=== PATIENT | female | born 1960 | race Caucasian/White ===

== ENCOUNTER → 2016-02-29 | Outpatient (CLI) | payer BC ==
[~2016-02-29] VITALS: Ht 160 cm; Wt 72.6 kg
[~2016-02-29] MED LIST: ACCUNEB SO1.25 MG/1 INH; AMLODIPINE BESY10 MG PO; BACLOFEN 10MG T10 MG PO; BUSPAR; BUTRANS1 EAC1 TD; BYSTOLIC2.5 MG PO; DIAZEPAM 2MG TAB2 MG; DOXYCYCLINE 10100 MG PO; EFFEXOR XR150 MG PO; EFFEXOR25 MG; FENOFIBRATE PO; GLUCOTROL5 MG PO; HYDROCODON-ACE1 EAC7 PO; IMITREX 25 MG T25 MG PO; INDERAL LA60 MG PO; MEDROLDOSEPACK PO; METFORMIN HCL500 MG PO; MOBIC15 MG PO; NEURONTIN600 MG PO; NORTRIPTYLINE H25 M3; PROMETHAZINE/C118 ML; RELPAX40 MG PO; ROBAXIN 750 MG750 M1 PO; SEROQUEL 50 MG50 MG PO; SEROQUEL400 MG PO; SIMVASTATIN20 MG PO; SPIRIVA INH; SYMBICORT160 MCG/4. INH; TIZANIDINE HCL 22 M1 PO; TIZANIDINE HCL2 M1 PO; TOPAMAX 25 MG T25 M1 PO; TRAMADOL 50 MG50 MG PO; TRICOR145 MG PO; VALIUM5 MG PO; VIBRAMYCIN100 MG PO; XANAX 0.25 MG0.25 MG PO; ZANAFLEX4 MG PO
--- NOTE | ~2016-02-29 | O ---
[facility] [place] [address] [place] [address] OPERATIVE REPORT Name: SHANTI WEBSTER [id number] Admission: 02/29/16 Attend Phys: Joseph Tong DO Discharge: Date of : 60 Report #: [id number] THIS REPORT FOR: //name// CC: Ricardo Tong DATE OF SERVICE: 02/29/2016 NAME OF THE PROCEDURE: Cervical epidural steroid injection under fluoroscopy. ASSESSMENT: Symptomatic Cervical Radiculopathy DESCRIPTION OF PROCEDURE: After written and informed consent was obtained including risk of dural puncture, spinal cord trauma, paralysis and increased pain, the patient was taken to the fluoroscopy suite and placed in the prone position, with appropriate abdominal bolstering, neck was flexed, palms under the thighs. Skin was prepped with ChloraPrep. Sterile draping was applied. Skin wheal with 1% Xylocaine was raised. A 22-gauge 3-1/2 inch epidural Tuohy needle was placed via a midline approach at the C7-T1 interspace, advanced under biplanar fluoroscopy using continuous loss of resistance. With appropriate loss of resistance at the expected depth on lateral view, the glass loss of resistance syringe was disconnected. A low volume extension tubing was connected to the needle and a 5 mL syringe. Negative aspiration for cerebrospinal fluid or blood was noted. A 1 mL of Omnipaque was injected which showed spread within the epidural space on biplanar fluoroscopy. This was followed with 80 mg of triamcinolone plus 1 mL of 1.5% preservative Xylocaine. Needle was withdrawn to the interspinous ligament, 0.5 mL of Xylocaine was used to flush the needle. The needle was then completely withdrawn. The area was cleansed. Band-Aid was applied. The patient was allowed to move off the procedure table and ambulated to the recovery room, monitored for an appropriate period of time, discharged in good and stable condition. <ELECTRONICALLY SIGNED> By: Joseph Tong DO 03/07/16 0858 [id number] [id number] Joseph Tong DO /nt
--- NOTE | ~2016-02-29 | HPC ---
[facility] [place] [address] PAIN MANAGEMENT CONSULTATION Name: SHANTI WEBSTER [facility] [id number] Admission: 02/29/16 Attend Phys: Joseph Tong DO Discharge: Date of : 60 Report #: [id number] THIS REPORT FOR: //name// CC: Ricardo Tong DATE OF SERVICE: 02/29/2016 HISTORY OF PRESENT ILLNESS: The patient is a 55-year-old female typically treated for cervical radiculopathy, chronic headaches, neuropathic pain requiring complex medication management, last seen in the pain clinic on 12/14/2015, continued on Butrans 20 mcg q. 7 days, baclofen 10 mg q.i.d. We started tizanidine 2 mg 3 times a day for spasm. Returns to pain clinic today noting medications are helpful, though she is having significant increase in radicular pain, primarily neck, right shoulder and arm, somewhat in the left. PHYSICAL EXAMINATION: Shows a 55-year-old female with BMI of 28.4 kg/m2, blood pressure is 136/77, pulse 89, respirations of 14. Positive Lhermitte with decreased right arm range of motion. IMAGING STUDIES: Prior study was quite dated 2008, MRI of the cervical spine showing facet degenerative changes. ASSESSMENT: 1. Symptomatic cervical radiculopathy, headaches, chronic pain syndrome requiring complex medication management. 2. Acute exacerbation of cervical radiculopathy. RECOMMENDATIONS: 1. Continue Butrans 20 mcg q. 7 days, baclofen 10 mg 4 times a day. We will increase tizanidine from 2 to 4 mg t.i.d. 2. Cervical epidural injection under fluoroscopy today. <ELECTRONICALLY SIGNED> By: Joseph Tong DO 03/07/16 0858 1636 [id number] Joseph Tong DO /nt
[2016-02-29 13:54] VITALS: BP 136/77
== END ==
LOC: PAIN 06:50
DX: M54.12 Radiculopathy, cervical region (principal); G89.4 Chronic pain syndrome; Z87.891 Personal history of nicotine dependence

== ENCOUNTER → 2016-05-30 | Outpatient (CLI) | payer BC ==
[~2016-05-30] VITALS: Ht 157.5 cm; Wt 73.3 kg
[~2016-05-30] MED LIST changes: +BUTALB-APAP-CA1 EACH PO; +GABAPENTIN800 M1 PO; +GLIPIZIDE 10 MG10 MG PO; +KEPPRA250 MG PO; +VALIUM2 MG PO
--- NOTE | ~2016-05-30 | HPC ---
[facility] [place] [address] [place] [address] PAIN MANAGEMENT CONSULTATION Name: SHANTI WEBSTER Room #: REG [facility]#: [id number] Admission: 05/30/16 Attend Phys: Joseph Tong DO Discharge: Date of : 60 Report #: [id number] THIS REPORT FOR: //name// CC: Ricardo Tong The patient is a 56-year-old female being treated for cervical radiculopathy, headaches, and neuropathic pain, requiring complex medication management. She had been stable on Butrans 20 mcg q. 7 days, baclofen typically hs and tizanidine for spasm. We did a cervical epidural injection at last visit with unfortunately really no dramatic improvement of baseline pain. she had about 3 days relief. With ongoing radicular pain, no significant relief following the injection, ordered an MRI which is attending. Depending on the results, we may refer for surgical consultation. Today, she notes the pain is primarily right shoulder and arm, chronic aching, sharp and stabbing, rates to 9 on a 0-10 visual analog scale, exacerbated with movement and weather changes. PHYSICAL EXAMINATION: GENERAL: Shows a 56-year-old female, 29.5 kilograms per meter squared BMI using supplemental oxygen. Blood pressure 116/67, pulse 93 and respirations 14. Cervical range of motion is limited. Positive Lhermitte's. Decreased range of motion of right shoulder and decreased strength and right arm. ASSESSMENT: Symptomatic cervical radiculopathy, headaches and neuropathic pain, requiring complex medication management. RECOMMENDATION: 1. Continue Butrans 20 mcg q. 7 days, tizanidine 2 mg one to two 3 times a day for spasm and baclofen 10 mg at bedtime. Follow up as needed for medication management. We will review MRI when available. <ELECTRONICALLY SIGNED> By: Joseph Tong DO 06/02/16 1240 [id number] 0409 Joseph Tong DO /nt
[2016-05-30 14:17] VITALS: BP 116/67
== END ==
LOC: PAIN 06:55
DX: M54.12 Radiculopathy, cervical region (principal); G44.89 Other headache syndrome; G62.9 Polyneuropathy, unspecified

== ENCOUNTER → 2016-07-04 | Outpatient (CLI) | payer BC ==
[~2016-07-04] VITALS: Ht 157.5 cm; Wt 72.8 kg
[~2016-07-04] MED LIST changes: +BUSPAR30 MG PO; +VOLTAREN GEL 1100 G2 TOP
--- NOTE | ~2016-07-04 | HPC ---
[facility] [place] [address] [place] [address] PAIN MANAGEMENT CONSULTATION Name: SHANTI WEBSTER Room #: REG [facility] Mamie#: [id number] Admission: 07/04/16 Attend Phys: Joseph Tong DO Discharge: Date of : 60 Report #: [id number] THIS REPORT FOR: //name// CC: Ricardo Tong The patient is a 56-year-old female, typically treated for symptomatic cervical radiculopathy, chronic headaches, neuropathic pain requiring complex medication management. She was last seen in the pain clinic on 05/30/2016. I continued the patient on her baseline Butrans 20 mcg q.7 days, tizanidine 2 mg up to t.i.d. for spasm, and baclofen at bedtime. We ordered a cervical MRI, which was indeed accomplished on 05/31/2016. I reviewed this with the patient today. There is a small right posterolateral C6-C7 disk protrusion, narrowing the right C7 neural foramen. The patient returns to pain clinic today. We spent a prolonged visit today. She was seen for approximately 25 minutes from [id number], greater than 50% of this 25 plus minute visit was spent counseling the patient. She presents to pain clinic today complaining of great deal of pain, she rates her pain a 9 on a 0-10 visual analog scale. She states she has pain "all over." She states she has pain in the neck, radiating up to the posterior occiput and into right arm & into " all of her fingers," all the way down spine to the beltline. She states pain is exacerbated with weather, any movement, or lifting her arms. She is asking for more "pain medicine." PHYSICAL EXAMINATION: Shows a 56-year-old female, BMI is 29.4 kg/m2. Blood pressure is 157/79, pulse is 90, and respirations are 14. Cranial nerves 2-12 are generally intact. Cervical range of motion is modestly diminished. She has extreme hyperpathia. She complains of pain to all resistance test for the deltoid, biceps, triceps and in fact physically recoils in subjective pain with active range of motion of the right shoulder. Deep tendon reflexes are generally preserved for the biceps, triceps, and brachioradialis. She has pain with passive rotation of the shoulder, which is perplexing. She exhibits some components of cervical radiculopathy, some components of DJD, some components of simply myofascial pain disorder. Long discussion with the patient today about therapeutic options. We elected to get an x-ray of the right shoulder to rule out any acute osseous pathology. She states she feels she has pain "into the bone." If this is unremarkable, we may consider a cervical epidural injection. If no relief with this, we would want to get an EMG of the right upper extremity. Today, we have elected to renew current medication including Butrans 20 mcg q.[address] [address] PAIN MANAGEMENT CONSULTATION Name: SHANTI WEBSTER Room #: REG [facility] Hatch#: [id number] Admission: 07/04/16 Attend Phys: Joseph Tong DO Discharge: Date of : 60 Report #: [id number] days, butalbital as needed for headaches up to t.i.d., tizanidine 4 mg t.i.d. for spasm and I have taken the liberty of initiating of Voltaren gel topically for the right shoulder. She has had GI intolerance of most all anti-inflammatories including Celebrex. Discharged in good and stable condition after a prolonged visit, follow up in 1-2 weeks if symptoms continue despite the Voltaren gel, seemingly shoulder is unremarkable on radiology, we will consider cervical epidural injection. <ELECTRONICALLY SIGNED> By: Joseph Tong DO 07/06/16 0758 1515 [id number] Joseph Tong DO /nt
[2016-07-04 14:01] VITALS: BP 157/79
== END ==
LOC: PAIN 06:54
DX: M54.12 Radiculopathy, cervical region (principal); G89.29 Other chronic pain; Z87.891 Personal history of nicotine dependence

== ENCOUNTER → 2016-08-08 | Outpatient (CLI) | payer BC ==
[~2016-08-08] VITALS: Ht 157.5 cm; Wt 72.1 kg
[~2016-08-08] MED LIST changes: +FENTANYL PA12 MCG/HR TD
--- NOTE | ~2016-08-08 | HPC ---
[facility] [address] [place] [address] PAIN MANAGEMENT CONSULTATION Name: SHANTI WEBSTER [facility]: [facility] [id number] Admission: 08/08/16 Attend Phys: Joseph Tong DO Discharge: Date of : 60 Report #: [id number] THIS REPORT FOR: //name// CC: Ricardo Tong The patient is a 56-year-old female being treated for symptomatic cervical radiculopathy, headaches, neuropathic pain requiring complex medication management. She has been remarkably stable on Butrans patch at 20 mcg for a number of years. Last seen in the pain clinic 07/04/2016. She has significant COPD and is oxygen dependent. For some reason, her insurance company is set to cancel her Butrans 20 mcg patch and is forwarding us information stating that the indicated recommendation from their standpoint is to rotate to Duragesic patch. I am a little concerned rotating to a much more robust narcotic in this patient that is oxygen dependent. She has been stable on her current medication for quite some time. We discussed concerns for respiratory depression and cognitive impairment switching her opiate analgesic. She is on multiple central acting agents for significant psychiatric disorder, she is currently taking gabapentin, diazepam, Keppra, Seroquel, venlafaxine, along with other medications for dyslipidemia, hypertension and significant pulmonary dysfunction. After a long discussion with the patient, we have elected to trial a rotation to Duragesic 12 mcg q. 72 hours. We will discontinue any breakthrough medications. She tells me she is concerned that the Fioricet that we are prescribing for headaches is causing her GI disturbance. I suggested she discontinue it as well. Continue tizanidine as needed for spasm. We will see the patient back in 4 weeks to evaluate efficacy of medication changes. The patient was discharged in good and stable condition. Follow up in 4 weeks for reevaluation. Urine drug screen was accomplished today. No aberrant behavior suggestive for drug diversion, simply complying with our opiate consent to treat contract. This urine should be positive for buprenorphine as her sole opiate. By: [id number] Joseph Tong DO /nt
[2016-08-08 14:39] VITALS: BP 151/83
== END | disposition home or self-care (01) ==
LOC: PAIN 06:56
DX: M54.12 Radiculopathy, cervical region (principal); J44.9 Chronic obstructive pulmonary disease, unspecified; I10 Essential (primary) hypertension; E78.5 Hyperlipidemia, unspecified; R51 Headache; F99 Mental disorder, not otherwise specified; Z87.891 Personal history of nicotine dependence; Z88.0 Allergy status to penicillin; Z88.8 Allergy status to other drugs, medicaments and biological substances; Z79.899 Other long term (current) drug therapy

== ENCOUNTER → 2016-09-05 | Outpatient (CLI) | payer BC ==
[~2016-09-05] VITALS: Ht 157.5 cm; Wt 72.6 kg
[2016-09-05 14:33] VITALS: BP 110/67
== END | disposition home or self-care (01) ==
LOC: PAIN 06:57
DX: M54.12 Radiculopathy, cervical region (principal); M47.812 Spondylosis without myelopathy or radiculopathy, cervical region; F41.8 Other specified anxiety disorders; Z87.891 Personal history of nicotine dependence

== ENCOUNTER → 2016-10-21 | Outpatient (CLI) | payer BC ==
[~2016-10-21] VITALS: Ht 157.5 cm; Wt 71.8 kg
--- NOTE | ~2016-10-21 | HPC ---
[facility] [place] [address] [place] [address] PAIN MANAGEMENT CONSULTATION Name: SHANTI WEBSTER Room #: REG [facility] Mamie#: [id number] Admission: 10/21/16 Attend Phys: Joseph Tong, DO Discharge: Date of : 60 Report #: [id number] THIS REPORT FOR: //name// CC: Ricardo Tong The patient is a very pleasant 56-year-old female well known to the pain clinic, being treated for high-risk complex medication management, cervical radiculopathy, chronic headaches, cervical spondylosis, chronic anxiety and depression, on multiple central acting agents from her psychiatrist. Last visit on 09/05/2016. We continued the patient on Duragesic 12 mcg (we had rotated to this because her insurance company stopped paying for Butrans, which had been efficacious), trial of Fioricet for headaches. Continue Voltaren gel topically. Last urine drug screen on 08/08/2016 is positive for prescribed medications at that time (buprenorphine). The patient returns to the pain clinic today, she is asking for an increase in the narcotic analgesics, though I am loath to move forward with escalating dose of this rather robust narcotic. She subjectively rates pain an 8 on a VAS. Pain is in the neck, right shoulder and arm with ongoing headaches. She does not think that the Fioricet was helpful for headaches. She is using Voltaren gel topically. PHYSICAL EXAMINATION: Unchanged, a 56-year-old female, BMI is 28.9 kg/m2. Affect is somewhat flat, compatible with her medications. Blood pressure is modestly elevated at 154/90, pulse 109, respirations 18. Cervical range of motion is a little bit limited, has some paresthesia in the right arm, though no discrete trigger points are noted. Hand grasp is symmetric. Heart is regular and rhythmical. Lungs are clear. Gait is generally tandem. Medication list was reconciled including multiple central acting agents including BuSpar, gabapentin, diazepam, Keppra, Seroquel, venlafaxine. She is on multiple agents for her COPD including Symbicort, Spiriva, albuterol. She does require supplemental oxygen. We reviewed the fact that opiate medications are being used to provide analgesia adequate to support activities of daily living, not attempting to achieve a specific pain score on the 0-10 Visual Analog Scale. The current opiate medications are providing sufficient analgesia to allow the patient to participate in activities of daily living. The patient is not exhibiting any aberrant behavior suggestive of drug diversion. The patient is not having any adverse reactions to medications. The patient is not suffering from daytime somnolence or mental acuity changes. The patient is managing opiate-induced constipation with appropriate hsip-bjo-vzbewgc agents and dietary considerations. The patient was counseled on concern for caution with operating a motor vehicle while using opiate medications. [address] [address] PAIN MANAGEMENT CONSULTATION Name: SHANTI WEBSTER [facility]: [facility] [id number] Admission: 10/21/16 Attend Phys: Joseph Tong DO Discharge: Date of : 60 Report #: [id number] A physical exam was performed and the patient's functional status was evaluated. All patients with back pain were advised against the bed rest greater than 4 days and were advised to return to normal activities. Pain score assessment was noted and the treatment plan was reviewed with the patient. All current medications, both prescribed and OTC were reviewed and reconciled on the electronic medical record. Tobacco screening was accomplished and smoking cessation was advised when indicated. BMI was noted and diet/exercise modification was recommended for all patients following outside normal parameters. I reviewed with the patient today their responsibilities to safeguard prescription medications, reviewed their responsibility to utilize medications only as prescribed by the physician. They are to seek and receive pain medications only from 1 physician group ( [facility]). They are to use 1 pharmacy and keep the clinic informed if they change pharmacies. Their responsibilities include making followup visits in a timely fashion and to avoid abrupt discontinuation of medication usage. Their responsibilities further include bringing their medications (bottles from the pharmacy with residual pills) to the visit for possible confirmation of pill counts and the patient understands it is their responsibility to submit to random drug screens to ensure both that the medications prescribed are present, and that no other controlled substances are present. All prescriptions provided today were generated electronically. Prolonged visit with the patient today from 14:48 to 15:20, greater than 50% of this 25+ minute visit was spent counseling the patient. Again, with COPD and cervical spondylosis, headaches, depression and high-risk complex medication, I am loath to increase her Duragesic patch. Again, it is specifically indicated for opiate-tolerant patients and she has rotated from [facility] to this simply due to insurance. We have elected to discontinue Fioricet. We will trial tramadol for breakthrough pain 50 mg t.i.d., continue Zanaflex 4 mg up to 4 times a day. I have taken the liberty of writing for 2 months of current medications. Discharged in good and stable condition after prolonged visit. Follow up at that time, earlier if needed. <ELECTRONICALLY SIGNED> By: Joseph Tong DO 10/27/16 0847 1251 2226 Joseph Tong DO /nt
[2016-10-21 14:43] VITALS: BP 154/90
== END | disposition home or self-care (01) ==
LOC: PAIN 14:10
DX: Z76.0 Encounter for issue of repeat prescription (principal); M54.12 Radiculopathy, cervical region; M47.892 Other spondylosis, cervical region; R51 Headache; G89.29 Other chronic pain; F41.8 Other specified anxiety disorders; F32.89 Other specified depressive episodes; Z79.891 Long term (current) use of opiate analgesic; J44.9 Chronic obstructive pulmonary disease, unspecified; Z87.891 Personal history of nicotine dependence; Z88.0 Allergy status to penicillin; Z79.82 Long term (current) use of aspirin; Z88.8 Allergy status to other drugs, medicaments and biological substances; Z79.899 Other long term (current) drug therapy

== ENCOUNTER → 2017-03-02 | Outpatient (CLI) | payer BC ==
[~2017-03-02] VITALS: Ht 157.5 cm; Wt 75.3 kg
[~2017-03-02] MED LIST changes: +ALLEGRA ALLERG180 MG PO; +CYMBALTA30 MG PO; +DURAGESIC1 EACH TRANSDERM; +Fentanyl Patch 12 Mc TRANSDERM
--- NOTE | ~2017-03-02 | HPC ---
[facility] [place] [place] [address] [place] [address] PAIN MANAGEMENT CONSULTATION Name: SHANTI WEBSTER Room #: REG [facility] [id number] Admission: 03/02/17 Attend Phys: Joseph Tong DO Discharge: Date of : 60 Report #: [id number] THIS REPORT FOR: //name// CC: Ricardo Tong HISTORY OF PRESENT ILLNESS: The patient is a 56-year-old female, long known to pain clinic for symptomatic cervical radiculopathy, cervical spondylosis, chronic anxiety requiring high risk complex medication management. She was last seen in the pain clinic on 12/29/2016, continued on Duragesic 12 mcg q. 72 hours, tramadol 50 mg up to 3 times a day, tizanidine 4 mg t.i.d. Last random drug screen on 08/08/2016 was positive for prescribed medications. She returns to pain clinic today. She notes that while medications are helpful, she still has ongoing pain in neck, right shoulder and arm. In fact notes that the radicular symptoms seem to be getting worse with the cold weather. She rates her subjective pain score 8 on a VAS. Pain primarily right shoulder, arm with ongoing chronic headaches. PHYSICAL EXAMINATION: Shows a 56-year-old female, BMI is 30.4 kilograms per meter squared. Blood pressure is 136/75, pulse 105, respirations 18. Cervical range of motion is modestly limited. Upper extremity strength has some subjective give away to right deltoid strength secondary to pain. Biceps and triceps strength is symmetric. Hand grasp is good. Deep tendon reflexes are preserved. Some diffuse tenderness in the cervical spine, splenius capitis, trapezius and thoracic paravertebral muscles. We reviewed the fact that opiate medications are being used to provide analgesia adequate to support activities of daily living, not attempting to achieve a specific pain score on the 0-10 Visual Analog Scale. The current opiate medications are providing sufficient analgesia to allow the patient to participate in activities of daily living. The patient is not exhibiting any aberrant behavior suggestive of drug diversion. The patient is not having any adverse reactions to medications. The patient is not suffering from daytime somnolence or mental acuity changes. The patient is managing opiate-induced constipation with appropriate xjts-ixe-cgryogw agents and dietary considerations. The patient was counseled on concern for caution with operating a motor vehicle while using opiate medications. A physical exam was performed and the patient's functional status was evaluated. All patients with back pain were advised against the bed rest greater than 4 days and were advised to return to normal activities. Pain score assessment was noted and the treatment plan was reviewed with the patient. All current medications, both prescribed and OTC were reviewed and reconciled on the electronic medical record. Tobacco screening was accomplished and smoking cessation was advised when indicated. BMI was noted and diet/exercise [address] [address] PAIN MANAGEMENT CONSULTATION Name: ELEANORSHANTI MARAVILLA Room #: REG [facility] [id number] Admission: 03/02/17 Attend Phys: Joseph Tong DO Discharge: Date of : 60 Report #: [id number] modification was recommended for all patients following outside normal parameters. I reviewed with the patient today their responsibilities to safeguard prescription medications, reviewed their responsibility to utilize medications only as prescribed by the physician. They are to seek and receive pain medications only from 1 physician group ( [facility]). They are to use 1 pharmacy and keep the clinic informed if they change pharmacies. Their responsibilities include making followup visits in a timely fashion and to avoid abrupt discontinuation of medication usage. Their responsibilities further include bringing their medications (bottles from the pharmacy with residual pills) to the visit for possible confirmation of pill counts and the patient understands it is their responsibility to submit to random drug screens to ensure both that the medications prescribed are present, and that no other controlled substances are present. All prescriptions provided today were generated electronically. ASSESSMENT: 1. Symptomatic cervical spondylosis. 2. Cervical radiculopathy by history. 3. Chronic anxiety. 4. Headaches. 5. Bipolar disorder. 6. Requiring high risk complex medication management. RECOMMENDATION: Continue Duragesic 12 mcg q. 72 hours. Cautioned about opiate analgesic use and COPD requiring supplemental oxygen. Continue tramadol as needed for breakthrough pain 50 mg t.i.d. The patient queried about increasing this dose; however, she is on other serotonin reuptake inhibiting agents including venlafaxine 150 mg. We elected to continue simply t.i.d. tramadol. Continue Voltaren gel topically and tizanidine 4 mg 3-4 times a day as needed for spasm. I have taken the liberty of writing for 2 months of current medication. Follow up at that time, earlier if needed. <ELECTRONICALLY SIGNED> By: Joseph Tong DO 03/03/17 0954 1439 2128 Joseph Tong DO /nt
[2017-03-02 13:42] VITALS: BP 136/75
== END ==
LOC: PAIN 06:43
DX: M54.12 Radiculopathy, cervical region (principal); M47.892 Other spondylosis, cervical region; F41.9 Anxiety disorder, unspecified; R51 Headache; F31.89 Other bipolar disorder; Z79.899 Other long term (current) drug therapy

== ENCOUNTER → 2017-04-28 | Outpatient (CLI) | payer BC ==
[~2017-04-28] VITALS: Ht 157.5 cm; Wt 75.7 kg
--- NOTE | ~2017-04-28 | HPC ---
[facility] [place] [address] PAIN MANAGEMENT CONSULTATION Name: SHANTI WEBSTER Room #: REG [facility] Jatin.#: [id number] Admission: 04/28/17 Attend Phys: Joseph Tong, DO Discharge: Date of : 60 Report #: [id number] THIS REPORT FOR: //name// CC: Ricardo Tong The patient is a 57-year-old female, long known to the pain clinic, being treated for cervical radiculopathy, cervical spondylosis, chronic headaches, requiring complex medication management. She was last seen in the pain clinic 03/02/2017. Continued on baseline medication including Duragesic 12 mcg q.72 hours, tramadol 50 mg 1 tablet 3 times a day, tizanidine 4 mg t.i.d. for spasm. I have phoned in a prescription for Fioricet as a trial for ongoing headaches, this has been efficacious. Last random drug screen 08/08/2016, was positive for prescribed medications. The patient returns to pain clinic today noting medications are generally providing sufficient analgesia to participate in activities of daily living. She notes subjective pain score 7 on a VAS. BMI is 30.5 kg/m2, blood pressure 163/78, pulse 94, respirations are 14, oxygen saturation 96% on 2 liters nasal cannula. She has not fallen in the last 3 months, though she does have occasional "dizzy spells." History of hypertension, all medications were reconciled. She has had an opiate consent to treat contract for several years. She is at moderate risk for diversion. Some primary pain, headaches, neck and shoulder. Cervical range of motion is modestly limited. We reviewed the fact that opiate medications are being used to provide analgesia adequate to support activities of daily living, not attempting to achieve a specific pain score on the 0-10 Visual Analog Scale. The current opiate medications are providing sufficient analgesia to allow the patient to participate in activities of daily living. The patient is not exhibiting any aberrant behavior suggestive of drug diversion. The patient is not having any adverse reactions to medications. The patient is not suffering from daytime somnolence or mental acuity changes. The patient is managing opiate-induced constipation with appropriate qdso-uur-tfwzzyq agents and dietary considerations. The patient was counseled on concern for caution with operating a motor vehicle while using opiate medications. A physical exam was performed and the patient's functional status was evaluated. All patients with back pain were advised against the bed rest greater than 4 days and were advised to return to normal activities. Pain score assessment was noted and the treatment plan was reviewed with the patient. All current medications, both prescribed and OTC were reviewed and reconciled on the electronic medical record. Tobacco screening was accomplished and smoking cessation was advised when indicated. BMI was noted and diet/exercise modification was recommended for all patients following outside normal parameters. [address] [address] PAIN MANAGEMENT CONSULTATION Name: SHANTI WEBSTER [facility] [id number] Admission: 04/28/17 Attend Phys: Joseph Tong DO Discharge: Date of : 60 Report #: [id number] I reviewed with the patient today their responsibilities to safeguard prescription medications, reviewed their responsibility to utilize medications only as prescribed by the physician. They are to seek and receive pain medications only from 1 physician group ( [facility]). They are to use 1 pharmacy and keep the clinic informed if they change pharmacies. Their responsibilities include making followup visits in a timely fashion and to avoid abrupt discontinuation of medication usage. Their responsibilities further include bringing their medications (bottles from the pharmacy with residual pills) to the visit for possible confirmation of pill counts and the patient understands it is their responsibility to submit to random drug screens to ensure both that the medications prescribed are present, and that no other controlled substances are present. All prescriptions provided today were generated electronically. ASSESSMENT: Chronic headaches, cervical radiculopathy, cervical spondylosis, chronic complex medication management. The patient is doing well with current opiate consent to treat contract medications. We will renew Duragesic, tramadol, tizanidine and Fioricet. Fioricet to be used on a nondaily basis, one tablet onset of headache, may repeat in 4 hours, max 2 tablets in 24 hours, limit 30 tablets for 30 days with 1 refill. Follow up in 2 months for reevaluation. We want to get a buccal swab at that time, it will be about 12 months since her last random drug screen. The patient has shown no aberrant behavior suggestive of drug diversion. <ELECTRONICALLY SIGNED> By: Joseph Tong DO 05/04/17 0938 [id number] Joseph Tong DO /nt
[2017-04-28 13:41] VITALS: BP 163/78
== END ==
LOC: PAIN 07:10
DX: R51 Headache (principal); M54.12 Radiculopathy, cervical region; M47.892 Other spondylosis, cervical region

== ENCOUNTER → 2017-08-25 | Outpatient (CLI) | payer BC ==
[~2017-08-25] VITALS: Ht 157.5 cm; Wt 76.7 kg
--- NOTE | ~2017-08-25 | HPC ---
[facility] [place] [address] PAIN MANAGEMENT CONSULTATION Name: SHANTI WEBSTER Room #: REG [facility].#: [id number] Admission: 08/25/17 Attend Phys: Joseph Tong DO Discharge: Date of : 60 Report #: [id number] THIS REPORT FOR: //name// CC: Ricardo Tong DATE OF SERVICE: 08/25/2017 The patient is a 57-year-old female, long known to the Pain Clinic, typically treated for chronic pain syndrome requiring complex medication management, axial back pain. She had been stable for quite some time on Butrans patch. Unfortunately, her insurance company stopped paying for this. We rotated to fentanyl, I believe, in July of last year. She has done reasonably well with Duragesic at 12 mcg q. 72 hours. She uses tramadol for breakthrough pain, Fioricet for chronic headaches, and tizanidine for muscle spasm. She has done reasonably well with current medications. Pain impact score is greater than 35/70. Subjective pain score is 7-8 on a VAS. She notes weather exacerbates pain. With the heat, she has been unable to do a lot of walking. She states she felt a little better when she is able to walk on a more regular basis. PHYSICAL EXAMINATION: Reveals a 57-year-old female, BMI is 30.5 kg/m2. Vital signs stable as noted in the EMR. She uses supplemental oxygen at 3 liters per minute. She has not fallen in the last 3 months. Notes primary pain is in the neck and shoulders today with some chronic axial back pain. Cervical range of motion is modestly limited. Upper extremity strength is generally preserved. Tender in the splenius capitis and trapezius. Lower extremity strength is diminished, but symmetric. We reviewed the fact that opiate medications are being used to provide analgesia adequate to support activities of daily living, not attempting to achieve a specific pain score on the 0-10 Visual Analog Scale. The current opiate medications are providing sufficient analgesia to allow the patient to participate in activities of daily living. The patient is not exhibiting any aberrant behavior suggestive of drug diversion. The patient is not having any adverse reactions to medications. The patient is not suffering from daytime somnolence or mental acuity changes. The patient is managing opiate-induced constipation with appropriate varf-tol-aszthgd agents and dietary considerations. The patient was counseled on concern for caution with operating a motor vehicle while using opiate medications. A physical exam was performed and the patient's functional status was evaluated. All patients with back pain were advised against the bed rest greater than 4 days and were advised to return to normal activities. Pain score assessment was noted and the treatment plan was reviewed with the patient. All current [address] [address] PAIN MANAGEMENT CONSULTATION Name: SHANTI WEBSTER Room #: REG [facility] Mamie#: [id number] Admission: 08/25/17 Attend Phys: Joseph Tong DO Discharge: Date of : 60 Report #: [id number] medications, both prescribed and OTC were reviewed and reconciled on the electronic medical record. Tobacco screening was accomplished and smoking cessation was advised when indicated. BMI was noted and diet/exercise modification was recommended for all patients following outside normal parameters. I reviewed with the patient today their responsibilities to safeguard prescription medications, reviewed their responsibility to utilize medications only as prescribed by the physician. They are to seek and receive pain medications only from 1 physician group ([facility]). They are to use 1 pharmacy and keep the clinic informed if they change pharmacies. Their responsibilities include making followup visits in a timely fashion and to avoid abrupt discontinuation of medication usage. Their responsibilities further include bringing their medications (bottles from the pharmacy with residual pills) to the visit for possible confirmation of pill counts and the patient understands it is their responsibility to submit to random drug screens to ensure both that the medications prescribed are present, and that no other controlled substances are present. All prescriptions provided today were generated electronically. ASSESSMENT: Chronic axial back pain, cervical spondylosis, myofascial pain, requiring complex medication management. The patient has multiple comorbidities including chronic obstructive pulmonary disease and significant psychiatric disorder. Medication list was reconciled today. After discussion with the patient, we will like to continue Duragesic 12 mcg q. 72 hours. Continue Fioricet, limit 30 tablets for 30 days; Voltaren gel topically, which the patient feels has been quite efficacious; Tramadol for breakthrough pain 50 mg up to 3 a day; tizanidine 4 mg as needed for spasm up to 4 a day. Current psychiatric medications from other providers include venlafaxine, Seroquel, Keppra, Cymbalta 30 mg, BuSpar. The patient also takes albuterol, Spiriva inhaler and Symbicort for pulmonary concerns, amlodipine for hypertension, and glipizide for tld-ghftlsc-ymokaoqaq diabetes. Today, I have renewed prescriptions for Voltaren gel topical; Duragesic 25 mcg q. 72 hours; tizanidine 4 mg, limit 120 tablets, 1 refill; tramadol 50 mg 100 tablets, 1 refill. Discharged in good and stable condition. Follow up with one of my [facility] as able. <ELECTRONICALLY SIGNED> By: Joseph Tong DO 08/28/17 0659 [id number] Joseph Tong DO /nawaf
[2017-08-25 12:43] VITALS: BP 155/105
== END ==
LOC: PAIN 07:00
DX: M47.812 Spondylosis without myelopathy or radiculopathy, cervical region (principal); M54.5 Low back pain; G89.4 Chronic pain syndrome; M79.1 Myalgia; Z79.899 Other long term (current) drug therapy

== ENCOUNTER → 2017-12-22 | Outpatient (CLI) | payer BC ==
[~2017-12-22] VITALS: Ht 157.5 cm; Wt 72.6 kg
--- NOTE | ~2017-12-22 | HPC ---
[facility] [place] [place] [address] PAIN MANAGEMENT CONSULTATION Name: SHANTI WEBSTER Room #: REG [facility] JatinChris#: [id number] Admission: 12/22/17 Attend Phys: Amber Pappas Discharge: Date of : 60 Report #: [id number] THIS REPORT FOR: //name// CC: Amber Michaels MD DATE OF SERVICE: 12/22/2017 CHIEF COMPLAINT: Right shoulder pain, right arm pain, neck pain, and abdominal pain. HISTORY OF PRESENT ILLNESS: The patient is a pleasant 57-year-old female who has been followed in the pain clinic for several years by Dr. Joseph Tong. She has been followed for her axial back pain as well as neck and shoulder pain. Today, she presents with abdominal pain, states that her abdomen is tender to touch. She was going in for her colonoscopy and the doctor noticed that her abdomen was large and swollen. He did not perform her colonoscopy that day, gave her 2 rounds of antibiotics and did some testing. The patient is to follow up with that doctor on Monday to find out the results. She tells me that her appetite has decreased. She has lost 6 pounds since last seen. Does not have an appetite, but does take her medicines with pudding and jello. The patient tells me today that her pain is 9/10. She just does not feel good, mostly tenderness and cramping in her abdomen. She does tell me that her neck and shoulder is worse with weather or movement. The medications used to help. The fentanyl she believes is still helping, but not the tramadol, so we discussed changes in her medications. The patient does not tell me that she is nauseated or vomiting. She is not having problems with constipation. In fact, she is having at its least 3 stools daily and no daytime somnolence. ALLERGIES: The patient has a significant list, COMPAZINE, PROZAC, STADOL, PENICILLIN, ASPIRIN, DEPAKOTE, NAPROXEN, ERYTHROMYCIN, AMITRIPTYLINE, DOXEPIN and LYRICA. MEDICATIONS: The patient's current list of medications include tizanidine 4 mg 4 times a day as needed, tramadol 50 mg, Duragesic 12 mcg patch every 72 hours, butalbital as needed for headaches, Voltaren gel up to 4 times a day, Cymbalta 30 mg once a day, Claudia 180 mg once a day, Xanax 0.25 twice a day, BuSpar 30 mg twice a day, Glucotrol 10 mg twice a day, Keppra 250 mg twice a day, TriCor 145 mg daily, Seroquel 300 mg at bedtime, Effexor 150 mg at bedtime, albuterol as needed, Spiriva daily, Symbicort daily, simvastatin 20 mg at bedtime and amlodipine 10 mg once a day. PQRS: 1. History of osteoarthritis in her neck and shoulder. Denies rheumatoid arthritis. [address] [address] PAIN MANAGEMENT CONSULTATION Name: SHANTI WEBSTER Room #: [facility] Hatch#: [id number] Admission: 12/22/17 Attend Phys: Amber Pappas Discharge: Date of : 60 Report #: [id number] 2. Height is 5 feet 2 inches, weight 160, BMI is 29.3. 3. Vital signs: Blood pressure 138/76, pulse is 97, respirations 14, oxygen sat is 97. Pain intensity is 9/10. 4. Fall risk: Yes, the patient does have some dizziness. Does not need help walking or standing and has not fallen in the last 3 months. 5. The patient denies any blood thinners. 6. Does have a history of hypertension. 7. Opioid therapy is greater than 6 weeks and has an opioid signed contract on the chart. 8. Risk assessment is low and her functional assessment is 40/70. 9. The patient denies recreational drug use. States she is a former smoker and does not drink alcohol. [place] and [place] PDMP were checked and is appropriate for this patient stating only 2 prescribers from this office. She does have another prescriber that does prescribe her alprazolam. No aberrant behaviors. PHYSICAL EXAMINATION: GENERAL: This is a well-developed white female, appears her stated age. She is alert and orientated. Affect is appropriate. HEENT: Normocephalic, atraumatic. Extraocular eye muscles are intact. Mucous membranes are moist. NECK: Without adenopathy. Some limitations in her neck and upper extremities, especially her right. Pain and discomfort in her right shoulder. ABDOMEN: The patient's abdomen is very protruded today, possible ascites, tender to the touch. Denies nausea, vomiting. Three bowel movements per day. The patient is guarding her abdomen. MUSCULOSKELETAL: Lower extremities strength to be judged to be 5/5, upper extremities 4/5 especially on the right. DIAGNOSTIC IMPRESSION: 1. Right posterolateral C6-C7 disk protrusion. 2. Right shoulder pain, right arm and neck pain. 3. Psychiatric disorder. 4. Lumbar radiculopathy. 5. Seizures. 6. Fibromyalgia. 7. Abdominal pain, possible ascites. We reviewed the fact that opiate medications are being used to provide analgesia adequate to support activities of daily living, not attempting to achieve a specific pain score on the 0-10 Visual Analog Scale. The current opiate medications are providing sufficient analgesia to allow the patient to participate in activities of daily living. The patient is not exhibiting any aberrant behavior suggestive of drug diversion. The patient is not having any adverse reactions to medications. The patient is not suffering from daytime [facility] [address] [place] [address] PAIN MANAGEMENT CONSULTATION Name: SHANTI WEBSTER Room #: REG [facility] Mamie#: [id number] Admission: 12/22/17 Attend Phys: Amber Pappas Discharge: Date of : 60 Report #: [id number] somnolence or mental acuity changes. The patient is managing opiate-induced constipation with appropriate nhku-xnt-senyqpe agents and dietary considerations. The patient was counseled on concern for caution with operating a motor vehicle while using opiate medications. A physical exam was performed and the patient's functional status was evaluated. All patients with back pain were advised against the bed rest greater than 4 days and were advised to return to normal activities. Pain score assessment was noted and the treatment plan was reviewed with the patient. All current medications, both prescribed and OTC were reviewed and reconciled on the electronic medical record. Tobacco screening was accomplished and smoking cessation was advised when indicated. BMI was noted and diet/exercise modification was recommended for all patients following outside normal parameters. I reviewed with the patient today their responsibilities to safeguard prescription medications, reviewed their responsibility to utilize medications only as prescribed by the physician. They are to seek and receive pain medications only from 1 physician group ( [facility]). They are to use 1 pharmacy and keep the clinic informed if they change pharmacies. Their responsibilities include making followup visits in a timely fashion and to avoid abrupt discontinuation of medication usage. Their responsibilities further include bringing their medications (bottles from the pharmacy with residual pills) to the visit for possible confirmation of pill counts and the patient understands it is their responsibility to submit to random drug screens to ensure both that the medications prescribed are present, and that no other controlled substances are present. All prescriptions provided today were generated electronically. PLAN: 1. The patient was seen in followup for her medications today. She states that she has been having significant abdominal pain, seeing her GI doctor who recently done 2 rounds of antibiotics and a CAT scan. The patient will follow up with that doctor on Monday for results of her x-rays. The patient will keep us apprised of the results. 2. The patient states that fentanyl patch is helpful, but the tramadol has not been as helpful. Due to this patient's increase in pain, we will after discussion with Dr. Cash increase her hydrocodone from to 5/325 three times a day and discontinue her tramadol. This is a trial currently to see if her pain level improves. The patient is to keep us notified also if it is not helpful or things change with her abdominal situation and is not able to tolerate foods, we may need to increase her fentanyl patch. 3. The patient was given a prescription for her fentanyl 12 mcg, #10 for today and 4-week; hydrocodone 5/325, #90 for today and 4-weeks and tizanidine 4 mg 1 tablet 4 times a day, #120 with one additional refill and Fioricet for her migraines, #30 with one additional refill. [facility] [address] [facility] [address] PAIN MANAGEMENT CONSULTATION Name: SHANTI WEBSTER Room #: REG [facility] Hatch#: [id number] Admission: 12/22/17 Attend Phys: Amber Pappas Discharge: Date of : 60 Report #: [id number] 4. We will follow up in our clinic in 2 months if not sooner depending on results of her x-rays. The patient is agreeable with this plan of care. The patient discharged and collaboration was given with Dr. Prosper Cash for this patient. <ELECTRONICALLY SIGNED> By: Amber Pappas 12/25/17 0717 [id number] Amber Pappas /nawaf
[2017-12-22 09:56] VITALS: BP 138/76
== END ==
LOC: PAIN 06:47
DX: M50.223 Other cervical disc displacement at C6-C7 level (principal); M79.601 Pain in right arm; M25.511 Pain in right shoulder; R10.9 Unspecified abdominal pain; M54.16 Radiculopathy, lumbar region; M79.7 Fibromyalgia; R56.9 Unspecified convulsions; F99 Mental disorder, not otherwise specified

== ENCOUNTER → 2018-02-09 | Outpatient (CLI) | payer BC ==
[~2018-02-09] VITALS: Ht 157.5 cm; Wt 73.1 kg
[~2018-02-09] MED LIST changes: +TIZANIDINE HCL4 MG PO
--- NOTE | ~2018-02-09 | HPC ---
[facility] [place] [address] PAIN MANAGEMENT CONSULTATION Name: SHANTI WEBSTER Room #: REG [facility]#: [id number] Admission: 02/09/18 Attend Phys: Amber Pappas Discharge: Date of : 60 Report #: [id number] THIS REPORT FOR: //name// CC: Amber Michaels DATE OF SERVICE: 02/09/2018 CHIEF COMPLAINT: Right shoulder pain, right arm pain, neck pain and abdominal pain. HISTORY OF PRESENT ILLNESS: This is a 57-year-old female who has been seen in the pain clinic for ongoing axial back pain, shoulder pain, neck pain and fibromyalgia. She is also complaining of abdominal pain that she has been having worked up by her primary care doctor for possible ascites and unknown origin of causing abdominal pain. The patient does tell me that her CT of her abdomen and her ultrasound were negative. They have not done any fluid tap on her and told her to take some tevs-ave-mzvohqt medicines. The patient says that she is waiting to hear from her primary care doctor, which she sees in the beginning of February. They told her to take these byre-vbz-tahijoc the nurse practitioner medicines. The patient is not willing to do that until she talks to her primary care doctor about her stomach abdominal pain. The patient tells me that her medications that we give her are helpful in controlling her pain. She has been having some breathing issues. She did have bronchitis and has been on some antibiotics and recently finished those. She denies any constipation. CURRENT ALLERGIES: See chart for completed long list. MEDICATIONS: Hydrocodone 5/325 three times a day, fentanyl patch 12 mcg every 72 hours, butalbital as needed, diclofenac gel as needed, Cymbalta 30 mg daily, Claudia as needed, Xanax 0.25 twice a day, BuSpar 30 mg twice a day, glipizide 10 mg twice a day, Keppra 250 mg twice a day, fenofibrate 145 mg daily, Seroquel 300 mg at bedtime, Effexor 150 mg daily, Spiriva daily and Symbicort daily. PQRS: 1. She has a history of osteoarthritis in her neck and shoulders. Denies rheumatoid arthritis. 2. Height is 5 feet 2 inches, weight is 161. BMI is 29.5. Vital signs: 132/74, pulse is 103, respirations 18 and oxygen sat is 93. Pain score is 7/10. Fall risk. She denies dizziness. Does not need help walking or standing. She has not fallen in the last 3 months. She is not on any blood thinners and does take hypertension medicines. Her opioid therapy is greater than 6 weeks, therefore, an opioid signed contract is on the chart. Her risk assessment tool is low and her functional assessment is 40/70. 3. Recreational drug use. She denies. She is a former smoker and does not use alcohol. We did check the prescription monitoring system [place] [address] PAIN MANAGEMENT CONSULTATION Name: SHANTI WEBSTER Room #: REG [facility]#: [id number] Admission: 02/09/18 Attend Phys: Amber Pappas Discharge: Date of : 60 Report #: [id number] filling appropriately for all of her medicines from Dr. Cash. She tells me that she safeguards her medications. She does have a recent drug screen on the chart. PHYSICAL EXAMINATION: GENERAL: This is a well-developed white female who appears her stated age. She is alert and orientated and her affect is appropriate and is a good historian. HEENT: Normocephalic and atraumatic. Extraocular eye muscles are intact. Mucous membranes are moist. NECK: Without adenopathy. She does have some limitations in her upper and lower extremities. Complains of pain in her shoulder today. ABDOMEN: Very protruded today, slightly less distended than last visit. They are very tender to the touch. The patient denies nausea and vomiting. She tells me that she is not constipated. The patient is guarding her abdomen as well. MUSCULOSKELETAL: Lower extremity strength judged to be 5/5 in the upper and lower extremities. IMPRESSION: 1. Right posterolateral C6-C7 disk protrusion. 2. Right shoulder pain. 3. Neck pain. 4. Psychiatric disorder. 5. Lumbar radiculopathy. 6. Seizure disorder. 7. Fibromyalgia. 8. Abdominal pain. We reviewed the fact that opiate medications are being used to provide analgesia adequate to support activities of daily living, not attempting to achieve a specific pain score on the 0-10 Visual Analog Scale. The current opiate medications are providing sufficient analgesia to allow the patient to participate in activities of daily living. The patient is not exhibiting any aberrant behavior suggestive of drug diversion. The patient is not having any adverse reactions to medications. The patient is not suffering from daytime somnolence or mental acuity changes. The patient is managing opiate-induced constipation with appropriate rubc-ahv-leoztby agents and dietary considerations. The patient was counseled on concern for caution with operating a motor vehicle while using opiate medications. A physical exam was performed and the patient's functional status was evaluated. All patients with back pain were advised against the bed rest greater than 4 days and were advised to return to normal activities. Pain score assessment was noted and the treatment plan was reviewed with the patient. All current medications, both prescribed and OTC were reviewed and reconciled on the electronic medical record. Tobacco screening was accomplished and smoking [facility] [address] [place] [address] PAIN MANAGEMENT CONSULTATION Name: SHANTI WEBSTER [facility] [id number] Admission: 02/09/18 Attend Phys: Amber Pappas Discharge: Date of : 60 Report #: [id number] cessation was advised when indicated. BMI was noted and diet/exercise modification was recommended for all patients following outside normal parameters. I reviewed with the patient today their responsibilities to safeguard prescription medications, reviewed their responsibility to utilize medications only as prescribed by the physician. They are to seek and receive pain medications only from 1 physician group ( [facility]). They are to use 1 pharmacy and keep the clinic informed if they change pharmacies. Their responsibilities include making followup visits in a timely fashion and to avoid abrupt discontinuation of medication usage. Their responsibilities further include bringing their medications (bottles from the pharmacy with residual pills) to the visit for possible confirmation of pill counts and the patient understands it is their responsibility to submit to random drug screens to ensure both that the medications prescribed are present, and that no other controlled substances are present. All prescriptions provided today were generated electronically. PLAN: 1. Treatment options were discussed with the patient today. It was decided to continue with her current medications that we have been prescribing her. Scripts given for tizanidine 4 mg 4 times a day, #120 with one additional refill. Next medicine is Fioricet, #30 with one additional refill; fentanyl patch 12 mcg every 72 hours, #10 for today and 4-week release; [place] 5/325 every 8 hours, #90 for today and 4-week release. 2. The patient was instructed to discuss with Dr. Michaels about her abdominal pain and ongoing fluid retention. We will try to obtain a copy of the CT and sonogram reports from [facility]. The patient has given us written consent to obtain those records and we will discuss those with Dr. Cash. 3. The patient is agreeable with this plan of care and will be seen in 2 months' time period, if not before. We will await Dr. Michaels's dictations to on her visit in February. In collaboration with Dr. Teo Cash today. <ELECTRONICALLY SIGNED> By: Amber Pappas 02/09/18 1318 [id number] Amber Pappas /nt
[2018-02-09 10:42] VITALS: BP 132/74
== END ==
LOC: PAIN 10:30
DX: M50.223 Other cervical disc displacement at C6-C7 level (principal); R10.9 Unspecified abdominal pain; M25.511 Pain in right shoulder; M54.16 Radiculopathy, lumbar region; G40.909 Epilepsy, unspecified, not intractable, without status epilepticus; M79.7 Fibromyalgia; F99 Mental disorder, not otherwise specified

== ENCOUNTER → 2018-04-11 | Outpatient (CLI) | payer BC ==
[~2018-04-11] VITALS: Ht 157.5 cm; Wt 74.4 kg
[~2018-04-11] MED LIST changes: +QUETIAPINE FUM200 MG PO; +SEROQUEL300 MG PO
[2018-04-11 10:56] VITALS: BP 161/73
--- NOTE | 2018-04-11 11:01 | NUR ---
Pain Clinic Assessment: 1. History of Osteoarthritis: neck History of Rheumatoid Arthritis: NO 2. Height: 5 ft. 2 in. 157.5 cm. Weight: 164.0 lb. oz. 74.390 kg. Patient's BMI: 30.0 3. Vital Signs: BP: 161/73 Pulse: 105 Resp: 20 Temp: 02 Sat: 95 ECG Mon: 4. Pain Intensity: 8 5. Fall Risk: Dizziness: N Needs help standing or walking: N Fallen in the last 3 months: N Fall risk comments: 6. Patient on Blood Thinner: None 7. History of Hypertension: Y 8. Opioid Therapy greater than 6 weeks: Y Opiate Contract Signed: 9. Risk Assessment Tool Provided: LOW RISK 3 10. Functional Assessment Tool: 11. Recreational Drug Use: Never Drug Type: Tobacco Use: Former Smoker Tobacco Type: Amount or Packs/day: How Many Years: Alcohol Use: No Frequency: Quant:
== END ==
LOC: PAIN 07:48
DX: M25.511 Pain in right shoulder (principal); M79.601 Pain in right arm; M54.2 Cervicalgia; R10.9 Unspecified abdominal pain; G89.29 Other chronic pain; Z87.891 Personal history of nicotine dependence; Z79.899 Other long term (current) drug therapy

== ENCOUNTER → 2018-05-30 | Outpatient (CLI) | payer BC ==
[~2018-05-30] VITALS: Ht 157.5 cm; Wt 73.9 kg
[2018-05-30 12:36] VITALS: BP 166/78
--- NOTE | 2018-05-30 12:49 | NUR ---
Pain Clinic Assessment: 1. History of Osteoarthritis: neck History of Rheumatoid Arthritis: NO 2. Height: 5 ft. 2 in. 157.5 cm. Weight: 163.0 lb. oz. 73.936 kg. Patient's BMI: 29.8 3. Vital Signs: BP: 166/78 Pulse: 90 Resp: 18 Temp: 02 Sat: 94 ECG Mon: 4. Pain Intensity: 8 5. Fall Risk: Dizziness: N Needs help standing or walking: N Fallen in the last 3 months: N Fall risk comments: 6. Patient on Blood Thinner: None 7. History of Hypertension: Y 8. Opioid Therapy greater than 6 weeks: Y Opiate Contract Signed: 05/30/18 9. Risk Assessment Tool Provided: LOW RISK 3 10. Functional Assessment Tool: 11. Recreational Drug Use: Never Drug Type: Tobacco Use: Former Smoker Tobacco Type: Amount or Packs/day: How Many Years: Alcohol Use: No Frequency: Quant:
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
== END ==
LOC: PAIN 07:13
DX: M25.511 Pain in right shoulder (principal); M79.601 Pain in right arm; M54.16 Radiculopathy, lumbar region; R10.9 Unspecified abdominal pain; M50.223 Other cervical disc displacement at C6-C7 level; M79.7 Fibromyalgia; G40.909 Epilepsy, unspecified, not intractable, without status epilepticus; Z88.8 Allergy status to other drugs, medicaments and biological substances; Z79.899 Other long term (current) drug therapy

== ENCOUNTER → 2018-07-26 | Outpatient (CLI) | payer BC ==
[~2018-07-26] VITALS: Ht 157.5 cm; Wt 73.2 kg
[~2018-07-26] MED LIST changes: +BUTRANS1 EAC2 TOP; +SYMPROIC0.2 MG PO
[2018-07-26 14:10] VITALS: BP 150/73
--- NOTE | 2018-07-26 14:14 | NUR ---
Pain Clinic Assessment: 1. History of Osteoarthritis: NECK History of Rheumatoid Arthritis: Not Applicable 2. Height: 5 ft. 2 in. 157.5 cm. Weight: 161.4 lb. oz. 73.211 kg. Patient's BMI: 29.5 3. Vital Signs: BP: 150/73 Pulse: 91 Resp: 18 Temp: 02 Sat: 93 ECG Mon: 4. Pain Intensity: 7 5. Fall Risk: Dizziness: Y Needs help standing or walking: N Fallen in the last 3 months: N Fall risk comments: 6. Patient on Blood Thinner: None 7. History of Hypertension: Y 8. Opioid Therapy greater than 6 weeks: Y Opiate Contract Signed: 05/30/18 9. Risk Assessment Tool Provided: LOW RISK 3 10. Functional Assessment Tool: 11. Recreational Drug Use: Never Drug Type: Tobacco Use: Former Smoker Tobacco Type: Amount or Packs/day: How Many Years: Alcohol Use: No Frequency: Quant:
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
== END ==
LOC: PAIN 07:00
DX: M50.223 Other cervical disc displacement at C6-C7 level (principal); M54.16 Radiculopathy, lumbar region; M25.511 Pain in right shoulder; M79.7 Fibromyalgia; G40.909 Epilepsy, unspecified, not intractable, without status epilepticus; R10.9 Unspecified abdominal pain; K59.03 Drug induced constipation; F99 Mental disorder, not otherwise specified

== ENCOUNTER → 2018-09-19 | Outpatient (CLI) | payer BC ==
[~2018-09-19] VITALS: Ht 157.5 cm; Wt 73.0 kg
[2018-09-19 09:07] VITALS: BP 122/61
--- NOTE | 2018-09-19 09:17 | NUR ---
Pain Clinic Assessment: 1. History of Osteoarthritis: NECK History of Rheumatoid Arthritis: Not Applicable 2. Height: 5 ft. 2 in. 157.5 cm. Weight: 161.0 lb. oz. 73.029 kg. Patient's BMI: 29.4 3. Vital Signs: BP: 122/61 Pulse: 73 Resp: 14 Temp: 02 Sat: 94 ECG Mon: 4. Pain Intensity: 8 5. Fall Risk: Dizziness: Y Needs help standing or walking: N Fallen in the last 3 months: N Fall risk comments: 6. Patient on Blood Thinner: None 7. History of Hypertension: Y 8. Opioid Therapy greater than 6 weeks: Y Opiate Contract Signed: 05/30/18 9. Risk Assessment Tool Provided: LOW RISK 3 10. Functional Assessment Tool: 11. Recreational Drug Use: Never Drug Type: Tobacco Use: Former Smoker Tobacco Type: Amount or Packs/day: How Many Years: Alcohol Use: No Frequency: Quant:
--- NOTE | 2018-09-20 15:45 | HPC ---
[facility] [address] [place] [address] PAIN MANAGEMENT CONSULTATION Name: SHANTI WEBSTER [facility] [id number] Admission: 09/19/18 ������������������ Attend Phys: Amber Pappas Discharge: ������������������ Date of : 60 Report #: [id number] THIS REPORT FOR: //name// CC: Amber Michaels DATE OF SERVICE: 09/19/2018 CHIEF COMPLAINT: Neck pain, abdominal pain and right shoulder pain. HISTORY OF PRESENT ILLNESS: This is a 58-year-old female who returns to the pain clinic today for a refill of her medications. She tells me that today her pain score is an 8/10 because she has a migraine headache that she has been suffering with for the last couple of days. She also has increased pain in her neck today as well as her ongoing right shoulder pain and abdominal pain. Her pain is worse with weather changes and movement, but the medication has been helpful, especially switching from fentanyl patch to Butrans patch. She tells me that it has been working quite well, which we rotated her in July. She is having less constipation with this medication and it is covered at a reasonable rate for her to pay for through her insurance company. The patient tells me that her pain is an achy, tender, sharp pain that is ongoing. She does tell me that her headache encompasses most of her head and also has complained of slight dizziness today, but has not fallen. ALLERGIES: COMPAZINE, PROZAC, STADOL, PENICILLIN, ASPIRIN, DEPAKOTE, NAPROXEN, ERYTHROMYCIN, AMITRIPTYLINE, DOXEPIN AND LYRICA. CURRENT LIST OF MEDICATIONS: Symproic 0.2 mg p.r.n., Butrans 20 mcg every week, Voltaren gel as needed, tizanidine 4 mg p.r.n., hydrocodone 5/325 t.i.d., Fioricet at onset of headache, Seroquel 200 mg at bedtime, gabapentin 800 mg 4 times a day, Cymbalta 30 mg daily, Claudia, Xanax 0.25 b.i.d., BuSpar 30 mg b.i.d., Glucotrol 10 mg b.i.d., Keppra 250 mg b.i.d., TriCor 145 mg daily, Effexor 150 mg daily, Spiriva inhaler, Symbicort inhaler, simvastatin 20 mg at bedtime and amlodipine 10 mg daily. PQRS REVIEW: 1. She has a history of osteoarthritis in her neck and shoulders. She denies any rheumatoid arthritis. 2. Height is 5 feet 2 inches, weight is 161 and BMI is 29. 3. Vital signs, 122/61, pulse is 73, respirations 14 and oxygen sat is 94. 4. Pain score is 8/10. 5. Complains of dizziness, but does not need help walking or standing and has not fallen in the last 3 months. 6. The patient is not on any blood thinners, but does have a history of hypertension. 7. Opioid therapy is greater than 6 weeks; therefore, an opioid signed contract [address] [address] PAIN MANAGEMENT CONSULTATION Name: ELEANORSHANTI Isaias Room #: REG [facility].#: [id number] Admission: 09/19/18 ������������������ Attend Phys: Amber Pappas Discharge: ������������������ Date of : 60 Report #: [id number] is on the chart. Risk assessment tool is low. Functional assessment is 40/70. 8. Recreational drug use, she denies. She is a former smoker and does not drink alcohol. According to the prescription monitoring system, the patient is filling appropriately for her medications in a timely fashion. We have a recent drug screen on the chart that is appropriate for her medications as well. PHYSICAL EXAMINATION: GENERAL: This is a well-developed, well-nourished female, who appears her stated age, placing her current pain score at 8/10 today. She is alert and orientated and her affect is appropriate. HEENT: Normocephalic, atraumatic. Extraocular eye muscles are intact. Mucous membranes are moist. Complains of a generalized headache throughout her head today. The patient has a nasal cannula in place for oxygen. ABDOMEN: Soft and nontender, though protuberant. EXTREMITIES: Upper extremity strength judged to be 5/5. Complains of neck tenderness at the base of her skull today. Lower extremity strength judged to be 5/5 bilaterally. The patient walks with a slow normal gait. We reviewed the fact that opiate medications are being used to provide analgesia adequate to support activities of daily living, not attempting to achieve a specific pain score on the 0-10 Visual Analog Scale. The current opiate medications are providing sufficient analgesia to allow the patient to participate in activities of daily living. The patient is not exhibiting any aberrant behavior suggestive of drug diversion. The patient is not having any adverse reactions to medications. The patient is not suffering from daytime somnolence or mental acuity changes. The patient is managing opiate-induced constipation with appropriate skds-dus-koemnzh agents and dietary considerations. The patient was counseled on concern for caution with operating a motor vehicle while using opiate medications. A physical exam was performed and the patient's functional status was evaluated. All patients with back pain were advised against the bed rest greater than 4 days and were advised to return to normal activities. Pain score assessment was noted and the treatment plan was reviewed with the patient. All current medications, both prescribed and OTC were reviewed and reconciled on the electronic medical record. Tobacco screening was accomplished and smoking cessation was advised when indicated. BMI was noted and diet/exercise modification was recommended for all patients following outside normal parameters. I reviewed with the patient today their responsibilities to safeguard prescription medications, reviewed their responsibility to utilize medications only as prescribed by the physician. They are to seek and receive pain medications only from 1 physician group ( [facility]). They are to use [address] [address] PAIN MANAGEMENT CONSULTATION Name: SHANTI WEBSTER Room #: REG [facility] Hatch#: [id number] Admission: 09/19/18 ������������������ Attend Phys: Amber Pappas Discharge: ������������������ Date of : 60 Report #: [id number] pharmacy and keep the clinic informed if they change pharmacies. Their responsibilities include making followup visits in a timely fashion and to avoid abrupt discontinuation of medication usage. Their responsibilities further include bringing their medications (bottles from the pharmacy with residual pills) to the visit for possible confirmation of pill counts and the patient understands it is their responsibility to submit to random drug screens to ensure both that the medications prescribed are present, and that no other controlled substances are present. All prescriptions provided today were generated electronically. ASSESSMENT: 1. Right anterolateral C6-C7 disk protrusion. 2. Neck pain. 3. Psychiatric disorder. 4. Lumbar radiculopathy. 5. Seizure disorder. 6. Fibromyalgia. 7. Abdominal pain, opioid-induced constipation. 8. History of migraines. PLAN: 1. We discussed treatment options with the patient today. The patient tells me that the rotation from her fentanyl patch to the Butrans patch has been very beneficial. She is reporting good control of her pain and less side effects such as constipation with this medicine. An added benefit for her is that it has been cheaper to fill than her fentanyl patches. Prescriptions given today for Butrans 20 mcg patch 1 patch every 7 days, quantity 4 with one additional refill. 2. Fioricet one tablet p.r.n. for onset of migraines, #30 with one additional refill. The patient has been complaining of migraines that are more frequent. I encouraged the patient to keep track of what triggers her migraines. We did give her names for Dr. Florencio Purcell's group and Dr. Lana Montague, another neurologist so the patient can verify with her insurance company who she should go to and then make an appointment to see if she can have a workup for her migraines through one of those doctors. 3. Prescriptions also given for hydrocodone 5/325, the patient takes 3 times a day, #90 for today and 4-week release. 4. The patient will return in 2-month followup for medications. 5. The patient is seen with Dr. Teo Cash, who did see the patient today and collaborated care. ��������������������������������������������� <ELECTRONICALLY SIGNED> ���������������������������������������� By: Amber Pappas ��������������������������������������������� 09/20/18 1545 [id number] [id number] Amber Pappas /nawaf
== END ==
LOC: PAIN 06:46
DX: M50.223 Other cervical disc displacement at C6-C7 level (principal); M54.16 Radiculopathy, lumbar region; G40.909 Epilepsy, unspecified, not intractable, without status epilepticus; G43.909 Migraine, unspecified, not intractable, without status migrainosus; M79.7 Fibromyalgia; K59.03 Drug induced constipation; T40.2X5A Adverse effect of other opioids, initial encounter; Z79.899 Other long term (current) drug therapy; Z88.0 Allergy status to penicillin; Z88.8 Allergy status to other drugs, medicaments and biological substances; Y92.89 Other specified places as the place of occurrence of the external cause

== ENCOUNTER → 2018-11-16 | Outpatient (CLI) | payer BC ==
[~2018-11-16] VITALS: Ht 157.5 cm; Wt 68.9 kg
[2018-11-16 13:20] VITALS: BP 161/66
--- NOTE | 2018-11-16 13:29 | NUR ---
Pain Clinic Assessment: 1. History of Osteoarthritis: NECK LOWER BACK History of Rheumatoid Arthritis: Not Applicable 2. Height: 5 ft. 2 in. 157.5 cm. Weight: 152.0 lb. oz. 68.947 kg. Patient's BMI: 27.8 3. Vital Signs: BP: 161/66 Pulse: 88 Resp: 16 Temp: 02 Sat: 94 ECG Mon: 4. Pain Intensity: 8 5. Fall Risk: Dizziness: Y Needs help standing or walking: N Fallen in the last 3 months: N Fall risk comments: 6. Patient on Blood Thinner: None 7. History of Hypertension: Y 8. Opioid Therapy greater than 6 weeks: Y Opiate Contract Signed: 05/30/18 9. Risk Assessment Tool Provided: LOW RISK 3 10. Functional Assessment Tool: 11. Recreational Drug Use: Never Drug Type: Tobacco Use: Former Smoker Tobacco Type: Amount or Packs/day: How Many Years: Alcohol Use: No Frequency: Quant:
--- NOTE | 2018-11-30 08:26 | HPC ---
[facility] [place] [address] PAIN MANAGEMENT CONSULTATION Name: SHANTI WEBSTER Room #: REG JESI Hatch#: [id number] Admission: 11/16/18 Attend Phys: Hunter Cash MD Discharge: Date of : 60 Report #: [id number] THIS REPORT FOR: //name// CC: Ricardo Cash DATE OF SERVICE: 11/16/2018 CHIEF COMPLAINT: Here for medication renewal. HISTORY: The patient is a 58-year-old female, who has been followed in the pain clinic. As you may recall, she has a history of right shoulder pain, right arm pain. She has had neck pain and abdominal pain. She has been followed in the pain clinic for treatment of these areas. She also has a history of fibromyalgia. She continues to find that her medications are beneficial. She has returned today for renewal of her medication. She has had some problems with migraine pain. She has not had a seizure in the last few months. She has returned today for renewal of the medications. CURRENT MEDICATIONS: Hydrocodone 5/325 one p.o. daily, fentanyl patch 12.5 mg q.72 hours, butalbital p.r.n., diclofenac gel p.r.n., Cymbalta 30 mg daily, Claudia as needed, Xanax 0.25 mg b.i.d., BuSpar 30 mg b.i.d., glipizide 10 mg, Keppra 250 mg b.i.d., fenofibrate 145 mg, Seroquel 300 mg at bedtime, Effexor 150 mg, Spiriva daily, and Symbicort. ALLERGIES: COMPAZINE, PROZAC, STADOL, PENICILLIN, ASPIRIN, DEPAKOTE, NAPROSYN, ERYTHROMYCIN, THORAZINE, AMITRIPTYLINE, AND LYRICA. PAIN CLINIC ASSESSMENT AND PQRS: 1. History of osteoarthritis involving her neck and shoulders. Denies history of rheumatoid arthritis. 2. Pain intensity is an 8/10. 3. Fall history: The patient has not fallen in the last 3 months. 4. Blood thinner. The patient is not on a blood thinning medication. 5. Hypertension. The patient is being treated for hypertension. 6. Opioids greater than 6 weeks. The patient receives medication from one source, the pain clinic. 7. Risk assessment tool, low for opioid risk. 8. Functional assessment tool, /. 9. Recreational drug use. The patient denies. 10. Tobacco: The patient is a former smoker. 11. Alcohol. The patient denies use of alcoholic beverages. PHYSICAL EXAMINATION: GENERAL: The patient is a well-developed, well-nourished white female. She appears her stated age. She is alert and oriented x 3[place] [address] PAIN MANAGEMENT CONSULTATION Name: SHANTI WEBSTER Room #: REG [facility]#: [id number] Admission: 11/16/18 Attend Phys: Hunter Cash MD Discharge: Date of : 60 Report #: [id number] appropriate. Speech is fluent. Height is 5 feet 2 inches, weight is 152 pounds, and BMI is 27.8. VITAL SIGNS: Blood pressure is 161/66, pulse is 88, respiratory rate is 16, and room air saturation 94%. HEENT: Normocephalic, atraumatic. Extraocular eye muscles intact. Sclerae nonicteric. Mucous membranes are moist. NECK: Without adenopathy or JVD. HEART: Regular rate. ABDOMEN: Protuberant. Denies abdominal pain. EXTREMITIES: Upper extremity muscle strength is judged to be 5-/5 for the major muscle groups in the upper extremity. The patient has some muscle discomfort in the lower extremities, 5-/5. IMPRESSION: 1. Right posterolateral C6-C7 disk protrusion. 2. Right shoulder pain. 3. Neck pain. 4. Psychiatric disorder. 5. Lumbar radiculopathy. 6. Seizure disorder. 7. Fibromyalgia. 8. Migraine. RECOMMENDATIONS: We have discussed treatment options with the patient. At this juncture, we will continue with her current pain medications. The risks and benefits of the medications were discussed. The patient will be provided with hydrocodone 5/325 one p.o. t.i.d., Fioricet 1 tablet daily, a total of 30 tablets provided, Butrans patch q.7 days, and Voltaren gel to the upper extremities q.i.d. The patient will call us if she has any concerns. The patient is aware that opioid medications can be problematic in some patients. She feels the medications are working reasonably well. She is not showing signs of addiction. She has taken the medication as prescribed. She is aware that 70,000 people last year as a result of overdosing. We will continue with her medications, which includes opioids to help control her complex medical management. We would like to thank you for letting us to participate in her care. <ELECTRONICALLY SIGNED> By: Hunter Cash MD 11/30/18 0826 [id number] 0215 Hunter Cash MD /PMT
== END ==
LOC: PAIN 06:58
DX: M50.223 Other cervical disc displacement at C6-C7 level (principal); M25.511 Pain in right shoulder; M54.16 Radiculopathy, lumbar region; M79.7 Fibromyalgia; G43.909 Migraine, unspecified, not intractable, without status migrainosus; G40.909 Epilepsy, unspecified, not intractable, without status epilepticus

== ENCOUNTER → 2019-01-11 | Outpatient (CLI) | payer BC ==
[~2019-01-11] VITALS: Ht 157.5 cm; Wt 68.0 kg
[~2019-01-11] MED LIST changes: +APAP-BUTALBITA1 EACH PO; +BUTRANS1 EAC2 TRANSDERM; +TROKENDI XR100 MG PO
[2019-01-11 10:43] VITALS: BP 151/80
--- NOTE | 2019-01-11 10:45 | NUR ---
Pain Clinic Assessment: 1. History of Osteoarthritis: NECK LOWER BACK History of Rheumatoid Arthritis: Not Applicable 2. Height: 5 ft. 2 in. 157.5 cm. Weight: 150.0 lb. oz. 68.040 kg. Patient's BMI: 27.4 3. Vital Signs: BP: 151/80 Pulse: 99 Resp: 16 Temp: 02 Sat: 93 ECG Mon: 4. Pain Intensity: 8 5. Fall Risk: Dizziness: N Needs help standing or walking: N Fallen in the last 3 months: N Fall risk comments: 6. Patient on Blood Thinner: None 7. History of Hypertension: Y 8. Opioid Therapy greater than 6 weeks: Y Opiate Contract Signed: 05/30/18 9. Risk Assessment Tool Provided: LOW RISK 3 10. Functional Assessment Tool: 11. Recreational Drug Use: Never Drug Type: Tobacco Use: Former Smoker Tobacco Type: Amount or Packs/day: How Many Years: Alcohol Use: No Frequency: Quant:
--- NOTE | 2019-01-14 08:01 | HPC ---
[facility] [place] [address] PAIN MANAGEMENT CONSULTATION Name: SHANTI WEBSTER [id number] Admission: 01/11/19 Attend Phys: Amber Pappas Discharge: Date of : 60 Report #: [id number] THIS REPORT FOR: //name// CC: Amber Michaels DATE OF SERVICE: 01/11/2019 CHIEF COMPLAINT: Chronic neck pain, right shoulder pain. HISTORY OF PRESENT ILLNESS: This is a pleasant 58-year-old female who returns to the pain clinic today for refill of her medications that she uses to help treat her ongoing cervical and right arm pain. She reports to me that she has RSD in this arm, had that in previous notes, but she has had ongoing cervical radiculopathy for quite some time. She reports that it has recently flared. She associates this flare to be in part of out-off her muscle relaxants and rating her pain score an 8/10. She also has generalized abdominal pain. Her overall pain is a constant, sharp, tender to the touch of her right arm. It is worse with any movement currently or cold air. She feels usually that her medications have been very beneficial and manage her pain quite well. The Butrans patch does cause some constipation and she has been taking some pork on a daily basis and finds this medicine very beneficial in controlling her opioid-induced constipation. The patient reports she has recently started some new migraine medicines. She is hopeful will help and that doctor prescribed a Medrol Dosepak. She has not started this medicine, but is hopeful that we think it may help her right arm pain as well. ALLERGIES: COMPAZINE, PROZAC, STADOL, PENICILLIN, ASPIRIN, DEPAKOTE, NAPROXEN, ERYTHROMYCIN, THORAZINE, AMITRIPTYLINE AND LYRICA. CURRENT LIST OF MEDICATIONS: Medrol Dosepak, Butalbital 325/50 p.r.n., Topamax XR 100 mg daily, hydrocodone 5/325 t.i.d. p.r.n., Voltaren gel as needed, Butrans patch 20 mcg daily, Symproic, tizanidine 4 mg q.i.d. p.r.n., Seroquel 200 mg at bedtime, gabapentin 800 mg q.i.d., Cymbalta 30 mg daily, Xanax 0.25 mg b.i.d., BuSpar 30 mg b.i.d., Glucotrol 10 mg b.i.d., Keppra 250 mg b.i.d., fenofibrate 145 mg daily, Effexor XR 150 mg daily, Spiriva daily, Symbicort daily, simvastatin 20 mg at bedtime and amlodipine 10 mg daily. PQRS: 1. She has arthritic changes in her neck and lumbar spine. 2. Denies rheumatoid arthritis. 3. Height is 5 feet 2 inches, weight is 150, BMI is 27. 4. Vital signs: 150/80, pulse is 90, respirations 16, oxygen sat is 93. 5. Pain score is 8/10. [address] [address] PAIN MANAGEMENT CONSULTATION Name: ELEANORSHANTI Room #: REG [facility].#: [id number] Admission: 01/11/19 Attend Phys: Amber Pappas Discharge: Date of : 60 Report #: [id number] 6. Denies dizziness, does not need help walking or standing, has not fallen in the last 3 months. 7. The patient is not on any blood thinners, but does take medicine for hypertension. 8. Opiate therapy is greater than 6 weeks; therefore, an opiate signed contract is on the chart. 9. Her risk assessment tool is low. 10. Functional assessment is 40/70. 11. Recreational drug use, she denies. She is a former smoker and does not drink alcohol. According to the prescription monitoring system, the patient is filling appropriately and is due next week to fill her medications. PHYSICAL EXAMINATION: GENERAL: This is alert and orientated 58-year-old female who appears her stated age, placing her current pain score at 8/10. HEENT: Normocephalic, atraumatic. Extraocular eye muscles are intact. Mucous membranes are moist. NECK: Without adenopathy or JVD. Does have some tenderness in her neck. EXTREMITIES: Upper extremity strength judged to be 5/5 in all major muscle groups. She has pain that is radiating down her right arm. It is sensitive to the touch today. No swelling noted in her extremity. ASSESSMENT: 1. Right posterolateral C6-C7 disk protrusion. 2. Right shoulder pain. 3. Neck pain. 4. Right arm pain. 5. Psychiatric disorder. 6. Lumbar radiculopathy. 7. Seizure disorder. 8. Fibromyalgia. 9. Migraines. 10. Complex medical management under terms of written opioid agreement. 11. Opioid-induced constipation. We reviewed the fact that opiate medications are being used to provide analgesia adequate to support activities of daily living, not attempting to achieve a specific pain score on the 0-10 Visual Analog Scale. The current opiate medications are providing sufficient analgesia to allow the patient to participate in activities of daily living. The patient is not exhibiting any aberrant behavior suggestive of drug diversion. The patient is not having any adverse reactions to medications. The patient is not suffering from daytime somnolence or mental acuity changes. The patient is managing opiate-induced constipation with appropriate [id number] agents and dietary [facility] [address] [place] [address] PAIN MANAGEMENT CONSULTATION Name: SHANTI WEBSTER Room #: REG [facility].#: [id number] Admission: 01/11/19 Attend Phys: Amber Pappas Discharge: Date of : 60 Report #: [id number] considerations. The patient was counseled on concern for caution with operating a motor vehicle while using opiate medications. A physical exam was performed and the patient's functional status was evaluated. All patients with back pain were advised against the bed rest greater than 4 days and were advised to return to normal activities. Pain score assessment was noted and the treatment plan was reviewed with the patient. All current medications, both prescribed and OTC were reviewed and reconciled on the electronic medical record. Tobacco screening was accomplished and smoking cessation was advised when indicated. BMI was noted and diet/exercise modification was recommended for all patients following outside normal parameters. I reviewed with the patient today their responsibilities to safeguard prescription medications, reviewed their responsibility to utilize medications only as prescribed by the physician. They are to seek and receive pain medications only from 1 physician group ([facility]). They are to use 1 pharmacy and keep the clinic informed if they change pharmacies. Their responsibilities include making followup visits in a timely fashion and to avoid abrupt discontinuation of medication usage. Their responsibilities further include bringing their medications (bottles from the pharmacy with residual pills) to the visit for possible confirmation of pill counts and the patient understands it is their responsibility to submit to random drug screens to ensure both that the medications prescribed are present, and that no other controlled substances are present. All prescriptions provided today were generated electronically. PLAN: 1. We discussed treatment options with the patient today. The patient reports that she has RSD in her right arm, has had for many years. She feels that it is recently flared due to not taking her muscle relaxants. I am unsure of that, but I encouraged her to restart this medicine with our new prescription. The patient was recently given a Medrol Dosepak for her migraines from her neurologist. I explained to the patient that this may be beneficial in helping control some of her pain in her arm. If it is not beneficial, then she may call for a steroid injection by Dr. Teo Cash to see if we could quiet down her cervical radiculopathy. 2. The patient reports the Symproic 0.2 mg, she takes daily has significantly reduced her constipation issues and finds this very beneficial. We will refill this medicine for 30 tablets with one additional refill today as well as her tizanidine 4 mg q.i.d. #120 with one additional refill 3. Dr. Teo Cash will refill her Butrans for 20 mcg patch #4 with one additional refill and hydrocodone 5/325 #90 with additional refill in 4 weeks. The patient finds these very beneficial. No problems of overmedication or daytime somnolence. 4. The patient states that she recently started a new medicine for migraines [address] [address] PAIN MANAGEMENT CONSULTATION Name: SHANTI WEBSTER Isaias Room #: REG [facility] Mamie#: [id number] Admission: 01/11/19 Attend Phys: Amber Pappas Discharge: Date of : 60 Report #: [id number] and she has taken over writing her Fioricet. We are no longer needing to write this medication. 5. The patient will return in 2 months if not sooner if she needs an epidural from Dr. Cash. Dr. Cash collaborated care today. <ELECTRONICALLY SIGNED> By: Amber Pappas 01/14/19 0801 [id number] [id number] Amber Pappas /nt
== END ==
LOC: PAIN 06:52
DX: M50.223 Other cervical disc displacement at C6-C7 level (principal); M25.511 Pain in right shoulder; M54.16 Radiculopathy, lumbar region; R56.9 Unspecified convulsions; M79.7 Fibromyalgia; K59.03 Drug induced constipation; K31.89 Other diseases of stomach and duodenum; T40.2X5A Adverse effect of other opioids, initial encounter; Y92.89 Other specified places as the place of occurrence of the external cause; Z79.891 Long term (current) use of opiate analgesic

== ENCOUNTER → 2019-03-06 | Outpatient (CLI) | payer BC ==
[~2019-03-06] VITALS: Ht 157.5 cm; Wt 65.2 kg
[~2019-03-06] MED LIST changes: +ZANAFLEX4 M2 PO
[2019-03-06 14:39] VITALS: BP 153/85
--- NOTE | 2019-03-06 14:48 | NUR ---
Pain Clinic Assessment: 1. History of Osteoarthritis: NECK LOWER BACK History of Rheumatoid Arthritis: Not Applicable 2. Height: 5 ft. 2 in. 157.5 cm. Weight: 143.8 lb. oz. 65.227 kg. Patient's BMI: 26.3 3. Vital Signs: BP: 153/85 Pulse: 91 Resp: 14 Temp: 02 Sat: 97 ECG Mon: 4. Pain Intensity: 7 5. Fall Risk: Dizziness: N Needs help standing or walking: N Fallen in the last 3 months: N Fall risk comments: 6. Patient on Blood Thinner: None 7. History of Hypertension: Y 8. Opioid Therapy greater than 6 weeks: Y Opiate Contract Signed: 05/30/18 9. Risk Assessment Tool Provided: LOW RISK 3 10. Functional Assessment Tool: 11. Recreational Drug Use: Never Drug Type: Tobacco Use: Former Smoker Tobacco Type: Amount or Packs/day: How Many Years: Alcohol Use: No Frequency: Quant:
--- NOTE | 2019-03-07 15:14 | HPC ---
[facility] [address] [place] [address] PAIN MANAGEMENT CONSULTATION Name: SHANTI WEBSTER Room #: REG [facility].#: [id number] Admission: 03/06/19 Attend Phys: Amber Pappas Discharge: Date of : 60 Report #: [id number] THIS REPORT FOR: //name// CC: Amber Cash MD DATE OF SERVICE: 03/06/2019 CHIEF COMPLAINT: Chronic neck pain, right shoulder pain. HISTORY OF PRESENT ILLNESS: This is a 58-year-old female who returns to the pain clinic today for her medication refills that she takes for her ongoing right shoulder pain as well as her neck and right arm pain. She does report her pain score of 7/10 today. She states the weather has made her fibromyalgia worse, so her pain is increased. She said she does not do well in the wintertime, she is needing refill of her Butrans patch and her hydrocodone. She does feel that her constipation has been well managed with her Symproic. She is taking that medication every 3 days and seems to be on a good bowel regimen per her report. Today, she is depressed. She states that her kiujtp-[facility]-jj[facility] at [facility]. She is slowly having to deal with her belongings and states that it was a difficult [place] for their family. ALLERGIES: COMPAZINE, PROZAC, STADOL, PENICILLIN, ASPIRIN, DEPAKOTE, NAPROXEN, ERYTHROMYCIN, AMITRIPTYLINE, DOXEPIN, AND LYRICA. CURRENT LIST OF MEDICATIONS: Hydrocodone 5/325 t.i.d., Butrans 20 mcg patch, Symproic, tizanidine, butalbital p.r.n., topiramate, diclofenac gel, Seroquel, gabapentin, Cymbalta, alprazolam, BuSpar, Glucotrol, Keppra, TriCor, Effexor, Symbicort, and simvastatin. PQRS: 1. The patient has a history of arthritic changes in her neck and lumbar spine. She denies any rheumatoid arthritis. 2. Height is 5 feet 2 inches, weight is 143, BMI is 26. 3. Vital signs 153/85, pulse is 91, respirations 14, oxygen sat is 97. She is on nasal cannula oxygen at 3 liters. 4. Pain score is 7/10. 5. Denies dizziness, does not need help walking or standing, has not fallen in the last 3 months. 6. The patient is not on any blood thinners, but does take medicine for hypertension. 7. Opioid therapy is greater than 6 weeks; therefore, an opioid signed contract is on the chart. Risk assessment tool is low. Functional assessment is 40/70. 8. Recreational drug use, she denies. She is a [place] [address] PAIN MANAGEMENT CONSULTATION Name: SHANTI WEBSTER Isaias Room #: [facility] Hatch#: [id number] Admission: 03/06/19 Attend Phys: Amber Pappas Discharge: Date of : 60 Report #: [id number] drink alcohol. According to the prescription monitoring system, the patient is filling appropriately for her medications. She is not quite due for her hydrocodone today, but is due for refill of her Butrans patch. Her morphine milliequivalents are 20 MME per day. PHYSICAL EXAMINATION: GENERAL: This is alert and orientated 58-year-old female who appears her stated age, placing her current pain score at 7/10. HEENT: Normocephalic, atraumatic. Extraocular eye muscles are intact. Mucous membranes are moist. She does have a nasal cannula in her ears. NECK: Without adenopathy or JVD. She has tenderness in all levels of range of motion including lateral tilt from side to side. EXTREMITIES: Strength judged to be 5/5 in her upper and lower extremities. She has tenderness in her lower back. ASSESSMENT: 1. Right posterolateral C6-C7 disk protrusion. 2. Right shoulder pain. 3. Neck pain. 4. Psychiatric disorder. 5. Lumbar radiculopathy. 6. Mild fibromyalgia. 7. Seizure disorder. 8. Migraines. 9. Opioid-induced constipation. 10. Complex medical management under terms of written opioid agreement. PLAN: 1. We discussed treatment options with the patient today. The patient finds her medications very beneficial in controlling her pain. She would like refills of these today. We will refill her Butrans 20 mcg patch #4 with 1 additional refill as well as her hydrocodone 5/325, #90 with 1 additional refill. 2. The patient is not needing her Symproic 0.2 mg. She feels that her opioid-induced constipation is well controlled with this medication and finds it very beneficial, taking this one pill every 3 days. 3. We will refill her tizanidine 4 mg tablets 3 times a day, #90 with 1 additional refill. These were sent electronically to her [facility]'s pharmacy. 4. The patient encouraged to make an appointment with Dr. Cash or myself in 2 months when she fills her last prescription. The patient verbalizes understanding. The patient is seen in collaboration with Dr. Cash. <ELECTRONICALLY SIGNED> By: Amber Pappas 03/07/19 1514 [id number] Amber Pappas /nt
== END ==
LOC: PAIN 07:08
DX: M25.511 Pain in right shoulder (principal); M54.2 Cervicalgia; M54.16 Radiculopathy, lumbar region; M79.7 Fibromyalgia; G43.909 Migraine, unspecified, not intractable, without status migrainosus; K59.03 Drug induced constipation; T40.2X5A Adverse effect of other opioids, initial encounter; Y92.89 Other specified places as the place of occurrence of the external cause

== ENCOUNTER → 2019-05-08 | Outpatient (CLI) | payer BC ==
[~2019-05-08] VITALS: Ht 157.5 cm; Wt 66.0 kg
[~2019-05-08] MED LIST changes: +AJOVY225 MG/1.5 SUBQ
[2019-05-08 10:54] VITALS: BP 155/77
--- NOTE | 2019-05-08 11:07 | NUR ---
Pain Clinic Assessment: 1. History of Osteoarthritis: NECK LOWER BACK History of Rheumatoid Arthritis: Not Applicable 2. Height: 5 ft. 2 in. 157.5 cm. Weight: 145.6 lb. oz. 66.044 kg. Patient's BMI: 26.6 3. Vital Signs: BP: 155/77 Pulse: 98 Resp: 14 Temp: 02 Sat: 94 ECG Mon: 4. Pain Intensity: 6 5. Fall Risk: Dizziness: N Needs help standing or walking: N Fallen in the last 3 months: N Fall risk comments: 6. Patient on Blood Thinner: None 7. History of Hypertension: Y 8. Opioid Therapy greater than 6 weeks: Y Opiate Contract Signed: 05/30/18 9. Risk Assessment Tool Provided: LOW RISK 3 10. Functional Assessment Tool: 11. Recreational Drug Use: Never Drug Type: Tobacco Use: Former Smoker Tobacco Type: Cigarettes Amount or Packs/day: 1 PACK How Many Years: 45 Alcohol Use: No Frequency: Quant:
--- NOTE | 2019-05-17 08:21 | HPC ---
[facility] [place] [address] PAIN MANAGEMENT CONSULTATION Name: SHANTI WEBSTER Room #: REG JESI Lara.#: [id number] Admission: 05/08/19 Attend Phys: Hunter Cash MD Discharge: Date of : 60 Report #: [id number] THIS REPORT FOR: cc: Ricardo Michaels MD, Kirk D. MD Brown,Hunter Cheng MD ~ CC: Ricardo Cash DATE OF SERVICE: 05/08/2019 CHIEF COMPLAINT: Chronic neck pain with pain down in the arm and fibromyalgia. HISTORY: The patient is a 59-year-old female who has been followed in the pain clinic because of chronic pain. She has a history of right shoulder pain. She has right arm pain and suffers from radiculopathy. She has a history of fibromyalgia. She has pulmonary problems and is on chronic oxygen therapy. She has returned today for renewal of her medications. She has a history of seizures, but has not had seizure activity for a number of months. She has a history of migraine headaches. She states that she is receiving medications from one of her physicians in which entails abdominal injections. She is not sure what the medication is, but feels that this has been quite helpful in decreasing her headaches. She has returned today for renewal of her medications. ALLERGIES: COMPAZINE, PROZAC, STADOL, PENICILLIN, ASPIRIN, DEPAKOTE, NAPROSYN, ERYTHROMYCIN, THORAZINE, AMITRIPTYLINE, LYRICA. PAIN CLINIC ASSESSMENT AND PQRS: 1. The patient has a history of pain in her neck and shoulders. She denies history of rheumatoid arthritis. 2. Pain intensity: 6/10. 3. Fall. The patient has not fallen in the last 3 months. 4. Height 5 feet 2 inches, weight 145 pounds, BMI is 26.6. 5. Blood thinner: The patient is not on a blood thinning medication. 6. Hypertension: The patient is being treated for hypertension. 7. Opioids greater than 6 weeks: The patient received medication from one source the pain clinic. 8. Risk assessment tool: Low risk of 3 for opioid use. 9. Functional assessment tool: 4070. 10. Recreational drug use: The patient denies. 11. Tobacco: The patient is a former smoker. The patient smoked 1 pack of cigarettes per day for many years. 12. Alcohol. The patient denies frequent use of alcoholic beverages at this point. [address] [address] PAIN MANAGEMENT CONSULTATION Name: SHANTI WEBSTER [id number] Admission: 05/08/19 Attend Phys: Hunter Cash MD Discharge: Date of : 60 Report #: [id number] PHYSICAL EXAMINATION: GENERAL: The patient is a well-developed, well-nourished white female. Appears her stated age. She is alert and oriented x 3. Her affect is appropriate. Speech is fluent. HEENT: Normocephalic, atraumatic. Extraocular eye muscles intact. Sclerae nonicteric. Mucous membranes are moist. The patient has nasal cannula in place with about 2 liters of oxygen per minute. NECK: Without adenopathy or JVD. The patient does complain of neck and shoulder discomfort. HEART: Regular rate. ABDOMEN: Protuberant. Denies abdominal pain. EXTREMITIES: Upper extremity muscle strength judged to be 5-/5 for the major muscle groups in the upper extremity. The patient's muscle strength in the lower extremity is 5-/5. IMPRESSION: 1. Right posterolateral C6-C7 disk protrusion. 2. Right shoulder pain. 3. Chronic neck pain. 4. Psychiatric disorder. 5. Lumbar radiculopathy. 6. History of seizure disorder. 7. Fibromyalgia. 8. Migraine headaches. RECOMMENDATIONS: We discussed treatment options with the patient. At this juncture, we will continue with the patient's current medical regimen. She feels that the hydrocodone medication is helpful. We will continue with the hydrocodone at 5 mg 1 p.o. t.i.d. The patient is using Butrans 20 mcg and changes the patch every 7 days. She will continue with the muscle relaxant, tizanidine 4 mg 1 p.o. t.i.d. The patient also finds that the diclofenac gel to the affected area can be helpful. She is aware that opioid medications can become less effective as time goes on. She keeps her medications in a guarded area. She has taken the medications as prescribed. She has not shown any signs of addiction. She will call us if she has any concerns. We would like to thank you for letting us participate in her care. We hope she continues to improve. <ELECTRONICALLY SIGNED> By: Hunter Cash MD 05/17/19 0821 [id number] Hunter Cash MD /nawaf
== END ==
LOC: PAIN 06:42
DX: M54.2 Cervicalgia (principal); M54.16 Radiculopathy, lumbar region; M25.511 Pain in right shoulder; M79.7 Fibromyalgia; G43.909 Migraine, unspecified, not intractable, without status migrainosus

== ENCOUNTER → 2019-07-03 | Outpatient (CLI) | payer BC ==
[~2019-07-03] VITALS: Ht 157.5 cm; Wt 66.9 kg
[2019-07-03 10:51] VITALS: BP 133/74
--- NOTE | 2019-07-03 11:03 | NUR ---
Pain Clinic Assessment: 1. History of Osteoarthritis: NECK LOWER BACK History of Rheumatoid Arthritis: Not Applicable 2. Height: 5 ft. 2 in. 157.5 cm. Weight: 147.4 lb. oz. 66.860 kg. Patient's BMI: 27.0 3. Vital Signs: BP: 133/74 Pulse: 70 Resp: 16 Temp: 02 Sat: 98 ECG Mon: 4. Pain Intensity: 9 5. Fall Risk: Dizziness: N Needs help standing or walking: N Fallen in the last 3 months: N Fall risk comments: 6. Patient on Blood Thinner: None 7. History of Hypertension: Y 8. Opioid Therapy greater than 6 weeks: Y Opiate Contract Signed: 05/30/18 9. Risk Assessment Tool Provided: LOW RISK 3 10. Functional Assessment Tool: 11. Recreational Drug Use: Never Drug Type: Tobacco Use: Former Smoker Tobacco Type: Amount or Packs/day: How Many Years: Alcohol Use: No Frequency: Quant:
--- NOTE | 2019-07-03 14:51 | HPC ---
[facility] [place] [address] PAIN MANAGEMENT CONSULTATION Name: SHANTI WEBSTER Room #: REG [facility]#: [id number] Admission: 07/03/19 Attend Phys: Amber Pappas Discharge: Date of : 60 Report #: [id number] THIS REPORT FOR: cc: Ricardo Michaels MD, Kirk D. MD Hocker, Amanda CNS ~ CC: Carmen Cash MD DATE OF SERVICE: 07/03/2019 CHIEF COMPLAINT: Chronic neck pain, right arm pain and fibromyalgia. HISTORY OF PRESENT ILLNESS: This is a 59-year-old female who returns to the pain clinic today for refill of her medications that she uses to help treat her chronic pain. She has a history of right shoulder pain, and arm pain and also suffers from fibromyalgia. She is here today reporting a pain score of 9/10. Her pain is most intense in her right arm today. She reports that she dropped a heavy bowl on her wrist area a week ago and it has been painful since then. She did buy a tendinitis band to wear, but that has not been beneficial. She did not seek care from her primary care doctor. It is worse with movement of her arm and weather changes. She feels that her regular pain is rated a 6/10 today, which is an average number for her. She denies any problems with constipation as long as she takes her Symproic every 3 days to help with her opioid-induced constipation. She does not experience any daytime sleep somnolence as a result of her opioid medications. Today, she would like refills of her medication as well as her right arm examined. ALLERGIES: COMPAZINE, PROZAC, STADOL, PENICILLIN, ASPIRIN, DEPAKOTE, NAPROXEN, ERYTHROMYCIN, THIORIDAZINE, AMITRIPTYLINE, DOXEPIN, and LYRICA. CURRENT LIST OF MEDICATIONS: Tizanidine, hydrocodone 5/325 p.r.n., Butrans patch 20 mcg, Voltaren gel, Ajovy, Symproic, butalbital p.r.n., topiramate, Seroquel, gabapentin, Cymbalta, Xanax, buspirone, Glucotrol, Keppra, TriCor, Effexor, albuterol inhaler, simvastatin, and amlodipine. PQRS: 1. She has a history of osteoarthritis in her neck and shoulders. Denies any rheumatoid arthritis. 2. Height is 5 feet 2 inches, weight is 147, BMI is 27. 3. Blood pressure is 133/74, pulse is 70, respirations 16, oxygen saturation is 98 on 3 liters nasal cannula. 4. Pain score is 6-9/10. 5. Denies dizziness, does not need help walking or standing, has not fallen in the last 3 months. 6. The patient is not on any blood thinners, but does take medicine for hypertension. Opioid therapy is greater than 6 weeks; therefore, an opioid [address] [address] PAIN MANAGEMENT CONSULTATION Name: SHANTI WEBSTER Room #: REG JESI Hatch#: [id number] Admission: 07/03/19 Attend Phys: Amber Pappas Discharge: Date of : 60 Report #: [id number] signed contract is on the chart. Risk assessment tool is low. Functional assessment is 40/70. 7. Recreational drug use, she denies. She is a former smoker and does not drink alcohol. According to the prescription monitoring system, the patient is filling her opioids appropriately from Dr. Cash, filling them in a timely fashion. She is also on benzodiazepine from another physician filling those appropriately. She is on several centrally acting medications, but has been stable for quite some time. Her morphine milliequivalent is under 20 MME according to the CDC guidelines. PHYSICAL EXAMINATION: GENERAL: This is a well-developed, well-nourished white female who appears her stated age, placing her current pain score today from 6-9/10. She is alert and orientated. Her affect is appropriate and she is a good historian. HEENT: Normocephalic, atraumatic. Extraocular eye muscles are intact. She has a nasal cannula in place and a mask on. NECK: Without adenopathy or JVD. MUSCULOSKELETAL: She has pain and tenderness in her right flexor carpi ulnaris with tenderness to the touch from the wrist to the elbow. No ecchymosis noted presently. Her upper extremity strength is 4/5 on the right arm, 5/5 on the left. ASSESSMENT: 1. Right posterolateral C6-C7 disk protrusion. 2. Right shoulder pain. 3. Right arm pain. 4. Chronic neck pain. 5. Psychiatric disorder. 6. History of seizure disorder. 7. Lumbar radiculopathy. 8. Fibromyalgia. 9. Migraine headaches. We reviewed the fact that opiate medications are being used to provide analgesia adequate to support activities of daily living, not attempting to achieve a specific pain score on the 0-10 Visual Analog Scale. The current opiate medications are providing sufficient analgesia to allow the patient to participate in the activities of daily living. The patient is not exhibiting any aberrant behavior suggestive of drug diversion. The patient is not having any adverse reactions to medications. The patient is not suffering from daytime somnolence or mental acuity changes. The patient is managing opiate-induced constipation with appropriate [id number] agents and dietary considerations. The patient was counseled on concern for caution with operating a motor vehicle while using the opiate medications. [facility] [address] [place] [address] PAIN MANAGEMENT CONSULTATION Name: SHANTI WEBSTER Room #: REG [facility].#: [id number] Admission: 07/03/19 Attend Phys: Amber Pappas Discharge: Date of : 60 Report #: [id number] PLAN: 1. We discussed treatment options with the patient today. The patient recently had an accident at home where she dropped a bowl on her wrist. It has been painful for 1 week. She did not seek medical attention. Today, I examined her arm as well as Dr. Cash. We believe that she does have a contusion to that arm. We encouraged her to use a moist heat compress or heating pad and to not use her tendinitis brace that she purchased. If her pain continues greater than this week she is instructed to notify her primary care physician who she has not notified for this issue. 2. We will refill her medications for her Butrans patch 20 mcg, #4 with one additional refill, hydrocodone 5/325, #90 for 4-week only release. The patient has plenty of medications for this first month, having just recently filled her medications this weekend. 3. I will refill her tizanidine 4 mg t.i.d., #90 with one additional refill. She is not in need of her diclofenac or her Symproic medication that she uses on an as-needed basis. We did encourage her to use her Voltaren gel on her right wrist if needed. 4. The patient is seen in collaboration today with Dr. Prosper Cash, who sent her medicines electronically. The patient will return in 2 months. <ELECTRONICALLY SIGNED> By: Amber Papaps 07/03/19 1451 [id number] Amber Pappas /nt
== END ==
LOC: PAIN 06:55
DX: M50.223 Other cervical disc displacement at C6-C7 level (principal); M79.7 Fibromyalgia; M79.601 Pain in right arm; G43.909 Migraine, unspecified, not intractable, without status migrainosus; M54.16 Radiculopathy, lumbar region; M25.511 Pain in right shoulder; F99 Mental disorder, not otherwise specified; Z82.0 Family history of epilepsy and other diseases of the nervous system; Z87.891 Personal history of nicotine dependence; Z88.0 Allergy status to penicillin; Z88.3 Allergy status to other anti-infective agents; Z88.5 Allergy status to narcotic agent; Z88.8 Allergy status to other drugs, medicaments and biological substances; Z79.899 Other long term (current) drug therapy

== ENCOUNTER → 2019-08-21 | Outpatient (CLI) | payer BC ==
[~2019-08-21] VITALS: Ht 157.5 cm; Wt 68.6 kg
[2019-08-21 08:04] VITALS: BP 162/77
--- NOTE | 2019-08-21 08:07 | NUR ---
Pain Clinic Assessment: 1. History of Osteoarthritis: NECK LOWER BACK RIGHT ARM History of Rheumatoid Arthritis: Not Applicable 2. Height: 5 ft. 2 in. 157.5 cm. Weight: 151.2 lb. oz. 68.584 kg. Patient's BMI: 27.6 3. Vital Signs: BP: 162/77 Pulse: 90 Resp: 18 Temp: 02 Sat: 95 ECG Mon: 4. Pain Intensity: 7 5. Fall Risk: Dizziness: N Needs help standing or walking: N Fallen in the last 3 months: N Fall risk comments: 6. Patient on Blood Thinner: None 7. History of Hypertension: Y 8. Opioid Therapy greater than 6 weeks: Y Opiate Contract Signed: 05/30/18 9. Risk Assessment Tool Provided: LOW RISK 3 10. Functional Assessment Tool: 11. Recreational Drug Use: Never Drug Type: Tobacco Use: Former Smoker Tobacco Type: Amount or Packs/day: How Many Years: Alcohol Use: No Frequency: Quant:
--- NOTE | 2019-08-28 15:46 | HPC ---
[facility] [place] [address] [place] [address] PAIN MANAGEMENT CONSULTATION Name: SHANTI WEBSTER Room #: REG Elizabeth Lara#: [id number] Admission: 08/21/19 Attend Phys: Hunter Cash MD Discharge: Date of : 60 Report #: [id number] THIS REPORT FOR: cc: Ricardo Michaels MD, Kirk D. MD Brown,Hunter Cheng MD ~ CC: Ricardo Cash DATE OF SERVICE: 08/28/2019 CHIEF COMPLAINT: Right arm pain and arthritis. HISTORY OF PRESENT ILLNESS: The patient is a 59-year-old female who has been followed in the pain clinic because of chronic pain. She continues to have pain and discomfort, which involves her right arm. She rates her pain today as 7/10. She has noticed worsening of pain when the weather changes. Cold air is more problematic. She also notes increased discomfort for standing too long. She notes that use of her medications and rest are helpful. She does have a history of fibromyalgia. She reports that her pain involves her right shoulder, right arm, neck. She does have some generalized abdominal pain and hurts "all over." She has a history of migraine headaches. She has returned today for renewal of her medications. ALLERGIES: COMPAZINE, PROZAC, STADOL, PENICILLIN, ASPIRIN, DEPAKOTE, NAPROSYN, ERYTHROMYCIN, THORAZINE, AMITRIPTYLINE, LYRICA. PAIN CLINIC ASSESSMENT AND PQRS: 1. The patient has a history of pain in her neck and shoulders. Denies being treated for rheumatoid arthritis. 2. Height is 5 feet 2 inches, weight 151 pounds, BMI is 27.6. 4. Vital Signs: Blood pressure 162/77, pulse 90, respiratory rate 18, room air saturation 95%. 5. Blood thinner. The patient is not on a blood thinning medication. 6. Hypertension. The patient is being treated for hypertension. 7. Opioids greater than 6 weeks. The patient received medication from the pain clinic. 8. Risk assessment tool, low for opioid use. 9. Functional assessment tool . 10. Recreational drug use. The patient denies. 11. Tobacco: The patient is a former smoker, smoked 1 pack of cigarettes per day for many years. 12. Alcohol. The patient denies frequent use of alcoholic beverages at this juncture. PHYSICAL EXAMINATION: [facility] [address] [place] [address] PAIN MANAGEMENT CONSULTATION Name: SHANTI WEBSTER [facility] [id number] Admission: 08/21/19 Attend Phys: Hunter Cash MD Discharge: Date of : 60 Report #: [id number] GENERAL: The patient is a well-developed, well-nourished white female. Appears her stated age. She is alert and oriented x 3. Her affect is appropriate. Speech is fluent. HEENT: Normocephalic, atraumatic. Extraocular eye muscles intact. Sclerae nonicteric. Mucous membranes are moist. The patient is wearing a mask. The patient is receiving oxygen via nasal cannula at 2 liters per minute. NECK: Without adenopathy or JVD. Does complain of neck and shoulder discomfort. HEART: Regular rate. ABDOMEN: Protuberant. EXTREMITIES: Upper extremity muscle strength judged to be 5-/5 for the major muscle groups in the upper extremity. The patient's lower extremity muscle strength is 5-/5. IMPRESSION: 1. Right posterior lateral C6 disk protrusion. 2. Right shoulder pain. 3. Chronic neck pain. 4. Psychiatric disorder. 5. Lumbar radicular pain. 6. History of seizures. 7. Fibromyalgia. 8. Migraine headaches. RECOMMENDATIONS: We discussed treatment options with the patient. At this juncture, we will continue with her medications. Risks and benefits of opioid medications again were discussed. She feels that the medication of hydrocodone continued to be helpful. She would also like to continue with the Butrans medication. A script for her medications have been rewritten. She states that her daughter is considering going to the [facility] for 08/24/2019. We recommended that she have her daughter, quarantine at least 14 days before she rejoins the family. She states her daughter lives with her. Her is having some problems with his pulmonary status as well. We explained to her that the severity of COVID-19. It would probably be a very detrimental disease for her and her . A script for her medications have been provided. She will call us if she has any concerns. We would like to thank you for letting us participate in her care. We hope she continues to improve. <ELECTRONICALLY SIGNED> By: Hunter Cash MD 08/28/19 1546 [id number] Hunter Cash MD /[facility]
== END ==
LOC: PAIN 06:54
PROVIDERS: ATTEND Anesthesiology Pain Medicine
DX: M50.223 Other cervical disc displacement at C6-C7 level (principal); M54.16 Radiculopathy, lumbar region; Z88.8 Allergy status to other drugs, medicaments and biological substances

== ENCOUNTER → 2019-10-16 | Outpatient (CLI) | payer BC ==
[~2019-10-16] VITALS: Ht 157.5 cm; Wt 70.0 kg
[2019-10-16 10:40] VITALS: BP 130/73
--- NOTE | 2019-10-16 10:54 | NUR ---
Pain Clinic Assessment: 1. History of Osteoarthritis: NECK LOWER BACK RIGHT ARM History of Rheumatoid Arthritis: Not Applicable 2. Height: 5 ft. 2 in. 157.5 cm. Weight: 154.4 lb. oz. 70.035 kg. Patient's BMI: 28.2 3. Vital Signs: BP: 130/73 Pulse: 84 Resp: 16 Temp: 02 Sat: 97 ECG Mon: 4. Pain Intensity: 8 5. Fall Risk: Dizziness: N Needs help standing or walking: N Fallen in the last 3 months: N Fall risk comments: 6. Patient on Blood Thinner: None 7. History of Hypertension: Y 8. Opioid Therapy greater than 6 weeks: Y Opiate Contract Signed: 05/30/18 9. Risk Assessment Tool Provided: LOW RISK 3 10. Functional Assessment Tool: 11. Recreational Drug Use: Never Drug Type: Tobacco Use: Former Smoker Tobacco Type: Amount or Packs/day: How Many Years: Alcohol Use: No Frequency: Quant:
--- NOTE | 2019-10-24 15:09 | HPC ---
[facility] [place] [address] [place] [address] PAIN MANAGEMENT CONSULTATION Name: SHANTI WEBSTER Room #: REG Elizabeth Lara#: [id number] Admission: 10/16/19 Attend Phys: Hunter Cash MD Discharge: Date of : 60 Report #: [id number] THIS REPORT FOR: cc: Ricardo Michaels MD, Kirk D. MD Brown, N. Wayne MD ~ CC: Ricardo Cash DATE OF SERVICE: 10/16/2019 CHIEF COMPLAINT: Neck pain. HISTORY: The patient is a 59-year-old female who has been followed in the pain clinic because of chronic pain. She has pain involving the cervical area. She notes the pain that radiates down into her arm. She has a history of rheumatoid arthritis. Today, she states that her pain is about an 8. She hurts "all over." She has returned to the pain clinic with a desire to have her medications renewed. Right shoulder is most problematic. It radiates down into her right arm. She does have a history of fibromyalgia. She notes that the pain worsens with changes in weather. Certain movements can be problematic. Cold air exacerbates that. Standing for too longer period can be problematic. Notes her pain is alleviated or improved with use of medication, rest and has found that hot baths helpful. ALLERGIES: COMPAZINE, PROZAC, STADOL, PENICILLIN, ASPIRIN, DEPAKOTE, NAPROSYN, ERYTHROMYCIN, THORAZINE, AMITRIPTYLINE, LYRICA. PAIN CLINIC ASSESSMENT AND PQRS: 1. The patient has a history of pain in her neck and shoulders. Denies being treated for rheumatoid arthritis. 2. Height 5 feet 2 inches, weight 154 pounds, BMI is 28. 3. Vital Signs: Blood pressure 130/73, pulse 84, respiratory rate 16, room air saturation 97%. 4. Pain intensity, 8/10. 5. Fall risk. The patient has not fallen in the last 3 months. 6. Blood thinner. The patient is not on a blood thinning medication. 7. Hypertension. The patient is being treated for hypertension. 8. Opioids greater than 6 weeks. 9. Risk assessment tool, low for opioid use. 10. Functional assessment tool, . 11. Recreational drug use. The patient denies. 12. Tobacco: The patient is a former smoker. The patient does not smoke tobacco at this point. Did smoke many years ago. 13. Alcohol. The patient denies frequent use of alcoholic beverages. [address] [address] PAIN MANAGEMENT CONSULTATION Name: SHANTI WEBSTER Room #: REG [facility]#: [id number] Admission: 10/16/19 Attend Phys: Hunter Cash MD Discharge: Date of : 60 Report #: [id number] PHYSICAL EXAMINATION: GENERAL: The patient is a well-developed, well-nourished, white female. Appears her stated age. She is alert and oriented x 3. Her affect is appropriate. Speech is fluent. HEENT: Normocephalic, atraumatic. Extraocular eye muscles intact. Sclerae nonicteric. Mucous membranes moist. The patient is wearing a mask. She is receiving oxygen via nasal cannula at 2 liters at this moment. The patient without significant adenopathy or JVD. Does complain of pain in her neck and shoulder discomfort. HEART: Regular rate. ABDOMEN: Protuberant. EXTREMITIES: Upper extremity muscle strength judged to be 5-/5 for the major muscle groups in the upper extremity with weakness in the right arm and neck area. Lower extremity muscle strength judged to be 5-/5. IMPRESSION: 1. Right posterior lateral C6 disk protrusion. 2. Right shoulder pain. 3. Chronic neck pain. 4. Psychiatric disorder. 5. Lumbar radicular pain. 6. History of seizures. 7. Fibromyalgia. 8. Migraine headaches. RECOMMENDATIONS: We discussed treatment options with the patient. At this juncture, we will continue with her medications. The patient is aware that opioid medications can become less effective as time goes on. We will have the patient continue with Butrans patches 1 percutaneous to skin q.7 days, next voltaren gel 4 times daily to the affected upper extremities, next hydrocodone 5/325 1 p.o. 3 times a day. A script for 3 months of medication of hydrocodone has been provided. The patient will continue Symproic for constipation. She will also continue with Zanaflex 4 mg 1 p.o. t.i.d. for muscle spasms. We would like to thank you for letting us participate in her care. We hope she and her continue to improve. She is sheltering at home because of the COVID-19 problems. <ELECTRONICALLY SIGNED> By: Hunter Cash MD 10/24/19 1509 [id number] Hunter Cash MD /RADHA
== END ==
LOC: PAIN 06:49
PROVIDERS: ATTEND Anesthesiology Pain Medicine
DX: M50.222 Other cervical disc displacement at C5-C6 level (principal); M54.16 Radiculopathy, lumbar region; M25.511 Pain in right shoulder; M79.10 Myalgia, unspecified site; R51 Headache; F99 Mental disorder, not otherwise specified; Z86.69 Personal history of other diseases of the nervous system and sense organs; Z87.891 Personal history of nicotine dependence; Z88.8 Allergy status to other drugs, medicaments and biological substances; Z79.899 Other long term (current) drug therapy

== ENCOUNTER → 2020-02-12 | Outpatient (CLI) | payer BC | LOC: TELEPC 06:54 → PAIN 13:50 | PROVIDERS: ATTEND Anesthesiology Pain Medicine | DX: Z76.0 Encounter for issue of repeat prescription (principal); M25.511 Pain in right shoulder; G89.29 Other chronic pain; M54.2 Cervicalgia; F41.9 Anxiety disorder, unspecified; M54.5 Low back pain; R56.9 Unspecified convulsions; M79.7 Fibromyalgia; G43.909 Migraine, unspecified, not intractable, without status migrainosus; Z88.8 Allergy status to other drugs, medicaments and biological substances; Z79.899 Other long term (current) drug therapy ==

== ENCOUNTER → 2020-03-20 | Outpatient (CLI) | payer BC ==
[~2020-03-20] VITALS: Ht 157.5 cm; Wt 68.9 kg
[~2020-03-20] MED LIST changes: +[UNRECOGNIZED DRUG - OTHER] IM
[2020-03-20 11:02] VITALS: BP 140/82
--- NOTE | 2020-03-20 11:12 | NUR ---
Pain Clinic Assessment: 1. History of Osteoarthritis: NECK LOWER BACK RIGHT ARM History of Rheumatoid Arthritis: Not Applicable 2. Height: 5 ft. 2 in. 157.5 cm. Weight: 152.0 lb. oz. 68.947 kg. Patient's BMI: 27.8 3. Vital Signs: BP: 140/82 Pulse: 92 Resp: 20 Temp: 02 Sat: 97 ECG Mon: 4. Pain Intensity: 9 5. Fall Risk: Dizziness: N Needs help standing or walking: N Fallen in the last 3 months: N Fall risk comments: 6. Patient on Blood Thinner: None 7. History of Hypertension: Y 8. Opioid Therapy greater than 6 weeks: Y Opiate Contract Signed: 05/30/18 9. Risk Assessment Tool Provided: LOW RISK 3 10. Functional Assessment Tool: 11. Recreational Drug Use: Never Drug Type: Tobacco Use: Former Smoker Tobacco Type: Cigarettes Amount or Packs/day: 1 PPD How Many Years: 37 Alcohol Use: No Frequency: Quant:
== END ==
LOC: PAIN 07:00
PROVIDERS: ATTEND Anesthesiology Pain Medicine
DX: M50.10 Cervical disc disorder with radiculopathy, unspecified cervical region (principal); G89.29 Other chronic pain; G43.909 Migraine, unspecified, not intractable, without status migrainosus; M25.511 Pain in right shoulder; I10 Essential (primary) hypertension; F41.9 Anxiety disorder, unspecified; Z79.899 Other long term (current) drug therapy; Z79.891 Long term (current) use of opiate analgesic; Z88.6 Allergy status to analgesic agent; Z88.0 Allergy status to penicillin; Z88.8 Allergy status to other drugs, medicaments and biological substances

== ENCOUNTER → 2020-05-27 | Outpatient (CLI) | payer BC ==
[~2020-05-27] MED LIST changes: +AMARYL4 MG PO; +OLMSRTN-AMLDPN1 EACH PO; +ROSUVASTATIN CA20 MG PO
== END ==
LOC: TELEPC 06:49 → PAIN 06:49
PROVIDERS: ATTEND Anesthesiology Pain Medicine
DX: Z76.0 Encounter for issue of repeat prescription (principal); M50.20 Other cervical disc displacement, unspecified cervical region; M25.511 Pain in right shoulder; G89.29 Other chronic pain; F41.9 Anxiety disorder, unspecified; M54.5 Low back pain; G43.909 Migraine, unspecified, not intractable, without status migrainosus; Z82.0 Family history of epilepsy and other diseases of the nervous system; Z87.39 Personal history of other diseases of the musculoskeletal system and connective tissue; Z87.891 Personal history of nicotine dependence; Z88.8 Allergy status to other drugs, medicaments and biological substances; Z79.899 Other long term (current) drug therapy

== ENCOUNTER → 2020-07-01 | Outpatient (CLI) | payer BC ==
[~2020-07-01] MED LIST changes: +AMITIZA 24 MCG24 MC1 PO
--- NOTE | 2020-07-01 11:16 | HPC ---
[facility] [place] [address] PAIN MANAGEMENT CONSULTATION Name: SHANTI WEBSTER Room #: REG [facility].#: [id number] Admission: 07/01/20 Attend Phys: Amber Pappas Discharge: Date of : 60 Report #: [id number] THIS REPORT FOR: cc: BLANCA NOYOLA MD, OSSAMA MD Hocker, Amanda CNS ~ DOC #: [id number] cc: Carmen Cash MD DATE OF SERVICE: 07/01/2020 CHIEF COMPLAINT: Fibromyalgia, left arm and shoulder pain. This is a Telemed appointment that I am proceeding with after she has verbalized giving consent. The patient understands Telemed encounter is completely voluntary. She understands the risks including potential medical inaccuracies, given our recommendation, will be based on reported information. The patient understands the benefits of proceeding and alternatives, which include the potential need for subsequent [id number] care. The patient understands that privacy and confidentiality applied for telemedicine. The patient verbally agrees to proceed with a Telemed encounter. HISTORY OF PRESENT ILLNESS: This is a 60-year-old female, who I have spoken via the telephone today due to her not having any audiovisual options for this Telemed appointment. The patient reports that she has recently had very low blood pressure. She reports as low as 60/25. She had seen her primary care doctor last week and has stopped her amlodipine. She continues to take her blood pressure daily and has increased quite significantly, though she did not give me a number. Today, she states that she has not fallen or had any further dizzy spells since she has decreased her medications. The patient reports a pain score of 8/10 today. She states that her fibromyalgia is flaring due to the significant weather changes we have been experiencing. She states that her neck and shoulder pain are slightly better since the last visit with Dr. Cash. She believes her rheumatoid arthritis had been flared as well as fibromyalgia with the weather changes. Overall, she believes she is doing quite well with her Butrans patch and her hydrocodone. The patient reports that her Symproic medication that she uses to help treat her opioid-induced constipation has gotten quite expensive, costing her at least $50 copay a month. She is wondering if we have alternatives for an opioid-induced constipation medication that she may take. ALLERGIES: ERYTHROMYCIN, COMPAZINE, PROZAC, STADOL, PENICILLIN, ASPIRIN, DEPAKOTE, NAPROXEN, AMITRIPTYLINE, [place] [address] PAIN MANAGEMENT CONSULTATION Name: SHANTI WEBSTER Room #: REG [facility]#: [id number] Admission: 07/01/20 Attend Phys: Amber Pappas Discharge: Date of : 60 Report #: [id number] MEDICATIONS: hydrocodone 5/325, tizanidine, Voltaren gel, Butrans 20 mcg, butalbital p.r.n., Topamax, Seroquel, gabapentin, Cymbalta, Xanax, BuSpar, Glucotrol, Keppra, TriCor, venlafaxine, Spiriva, Symbicort, simvastatin. PQRS: She has osteoarthritis in her neck, arm and shoulders. She also states she has rheumatoid arthritis. Height and weight and vital signs are deferred. Pain score is 8/10. Fall risk. Complains of slight dizziness. Does not need help walking or standing. Has not fallen in the last 3 months. The patient is not on any blood thinners, but does take medicine for hypertension. Opioid therapy is greater than six weeks; therefore, an opioid signed contract is on the chart. RISK ASSESSMENT: Low. FUNCTIONAL ASSESSMENT: 40/70. RECREATIONAL DRUG USE: She denies. SOCIAL HISTORY: She is a former smoker and does not drink alcohol. According to the prescription monitoring system, she is due to fill her medications today, filling them in a timely fashion. Morphine mEq is less than 50 MME. REVIEW OF SYSTEMS: She is alert and orientated and answering all my questions today. States slightly has dizziness sensation due to lower blood pressure. Complains of pain in numerous muscle groups due to her fibromyalgia with improving neck and shoulder pain today. IMPRESSION: 1. Right posterolateral cervical disk protrusion. 2. Right shoulder pain. 3. Chronic pain. 4. Anxiety disorder. 5. Lumbar radicular pain. 6. History of seizures. 7. History of fibromyalgia. 8. Rheumatoid arthritis per report of patient. 9. Complex medical management, utilizing scheduled opioid medications. 10. Opioid-induced constipation. PLAN: 1. We discussed treatment options with the patient today. At this time, she is having a Telemed appointment due to blood pressure issues and feeling very weak. I encouraged the patient at her next visit, we will need to see her in person. Hopefully, her blood pressure will be more stabilized with the stopping of her amlodipine. I also encouraged her to have a followup visit with her primary care doctor prior to this time. 2. We will continue her on her Butrans patch 20 mcg, #4 will be sent [address] [address] PAIN MANAGEMENT CONSULTATION Name: SHANTI WEBSTER Room #: REG [facility]#: [id number] Admission: 07/01/20 Attend Phys: Amber Pappas Discharge: Date of : 60 Report #: [id number] electronically as well as her hydrocodone 5/325 #90. These will be sent by Dr. Carmen Cash. 3. I will continue her on her tizanidine 4 mg t.i.d., #90 p.r.n. for muscle spasms. 4. We did discuss her opioid-induced constipation and she states that Prozac has been becoming quite expensive. We will try alternative of Amitiza 24 mcg p.o. b.i.d., #60 will be sent electronically. If this requires a prior authorization, we may try Movantik 25 mg. The patient reports no renal issues, so she may take the full dose of this medication. 5. I encouraged the patient to have her COVID vaccine and is widely available now. Patient has just been staying at home, but she knows that [facility] is offering that near her. Time spent with the patient in consultation, reviewing recent studies, clinical notes and physician reports, physical examination and correlation of findings and medical documentation to determine possible treatment options is 15 minutes. Time spent in preparation for appointment, reviewing prescription monitoring reports, reviewing previous records and treatment options and reviewing current medications is 5 minutes. Time spent in preparation and sending electronic prescriptions with collaborating physician and documentation of visit and plan of treatment, is 5-minute. Total time spent 25 minutes. DEVAUGHN Gutierrez/LOLITA <ELECTRONICALLY SIGNED> By: Amber Pappas 07/01/20 [id number] [id number] Amber Pappas /nawaf
== END ==
LOC: TELEPC 06:58 → PAIN 14:25 → TELEPC 14:27
PROVIDERS: ATTEND Clinical Nurse Specialist Adult Health
DX: G89.29 Other chronic pain (principal); M79.7 Fibromyalgia; M25.512 Pain in left shoulder; M79.602 Pain in left arm; M50.20 Other cervical disc displacement, unspecified cervical region; F41.9 Anxiety disorder, unspecified; M54.16 Radiculopathy, lumbar region; M06.9 Rheumatoid arthritis, unspecified; F11.988 Opioid use, unspecified with other opioid-induced disorder; Z79.899 Other long term (current) drug therapy; Z87.891 Personal history of nicotine dependence

== ENCOUNTER → 2020-07-22 | Outpatient (CLI) | payer BC ==
[~2020-07-22] VITALS: Ht 157.5 cm; Wt 69.7 kg
[2020-07-22 11:13] VITALS: BP 152/81
--- NOTE | 2020-07-22 11:30 | NUR ---
Pain Clinic Assessment: 1. History of Osteoarthritis: NECK LOWER BACK RIGHT ARM History of Rheumatoid Arthritis: Not Applicable 2. Height: 5 ft. 2 in. 157.5 cm. Weight: 153.6 lb. oz. 69.672 kg. Patient's BMI: 28.1 3. Vital Signs: BP: 152/81 Pulse: 74 Resp: 16 Temp: 02 Sat: 98 ECG Mon: 4. Pain Intensity: 6 5. Fall Risk: Dizziness: N Needs help standing or walking: N Fallen in the last 3 months: N Fall risk comments: 6. Patient on Blood Thinner: None 7. History of Hypertension: Y 8. Opioid Therapy greater than 6 weeks: Y Opiate Contract Signed: 05/30/18 9. Risk Assessment Tool Provided: LOW RISK 3 10. Functional Assessment Tool: 11. Recreational Drug Use: Never Drug Type: Tobacco Use: Former Smoker Tobacco Type: Amount or Packs/day: How Many Years: Alcohol Use: No Frequency: Quant:
== END ==
LOC: PAIN 07:06
PROVIDERS: ATTEND Clinical Nurse Specialist Adult Health
DX: M50.20 Other cervical disc displacement, unspecified cervical region (principal); I10 Essential (primary) hypertension; G89.29 Other chronic pain; F41.9 Anxiety disorder, unspecified; Z79.01 Long term (current) use of anticoagulants; Z56.0 Unemployment, unspecified; Z88.0 Allergy status to penicillin; Z88.6 Allergy status to analgesic agent; Z88.5 Allergy status to narcotic agent; Z87.891 Personal history of nicotine dependence; Z79.899 Other long term (current) drug therapy; Z79.891 Long term (current) use of opiate analgesic

== ENCOUNTER → 2020-11-25 | Outpatient (CLI) | payer BC ==
[~2020-11-25] VITALS: Ht 157.5 cm; Wt 71.2 kg
[~2020-11-25] MED LIST changes: +FENTANYL1 EAC7 TRANSDERM; +TIZANIDINE HCL4 M2 PO
[2020-11-25 11:04] VITALS: BP 112/57
--- NOTE | 2020-11-25 11:21 | NUR ---
Pain Clinic Assessment: 1. History of Osteoarthritis: NECK LOWER BACK RIGHT ARM History of Rheumatoid Arthritis: Not Applicable 2. Height: 5 ft. 2 in. 157.5 cm. Weight: 157.0 lb. oz. 71.215 kg. Patient's BMI: 28.7 3. Vital Signs: BP: 112/57 Pulse: 80 Resp: 14 Temp: 02 Sat: 99 ECG Mon: 4. Pain Intensity: 8 5. Fall Risk: Dizziness: Y Needs help standing or walking: N Fallen in the last 3 months: N Fall risk comments: 6. Patient on Blood Thinner: None 7. History of Hypertension: Y 8. Opioid Therapy greater than 6 weeks: Y Opiate Contract Signed: 05/30/18 9. Risk Assessment Tool Provided: LOW RISK 3 10. Functional Assessment Tool: 11. Recreational Drug Use: Never Drug Type: Tobacco Use: Former Smoker Tobacco Type: Amount or Packs/day: How Many Years: Alcohol Use: No Frequency: Quant:
== END ==
LOC: PAIN 06:59
PROVIDERS: ATTEND Clinical Nurse Specialist Adult Health
DX: G89.29 Other chronic pain (principal); M79.7 Fibromyalgia; M25.511 Pain in right shoulder; M25.512 Pain in left shoulder; M50.220 Other cervical disc displacement, mid-cervical region, unspecified level; M54.16 Radiculopathy, lumbar region; M06.9 Rheumatoid arthritis, unspecified; F41.9 Anxiety disorder, unspecified; Z88.8 Allergy status to other drugs, medicaments and biological substances; Z88.6 Allergy status to analgesic agent; Z79.899 Other long term (current) drug therapy

== ENCOUNTER → 2020-12-23 | Outpatient (CLI) | payer BC ==
[~2020-12-23] VITALS: Ht 157.5 cm; Wt 72.3 kg
[~2020-12-23] MED LIST changes: +NARCAN4 MG NARES
[2020-12-23 10:53] VITALS: BP 112/74
--- NOTE | 2020-12-23 10:59 | NUR ---
Pain Clinic Assessment: 1. History of Osteoarthritis: NECK LOWER BACK RIGHT ARM History of Rheumatoid Arthritis: Not Applicable 2. Height: 5 ft. 2 in. 157.5 cm. Weight: 159.4 lb. oz. 72.303 kg. Patient's BMI: 29.1 3. Vital Signs: BP: 112/74 Pulse: 70 Resp: 22 Temp: 02 Sat: 97 ECG Mon: 4. Pain Intensity: 6 5. Fall Risk: Dizziness: N Needs help standing or walking: N Fallen in the last 3 months: N Fall risk comments: 6. Patient on Blood Thinner: None 7. History of Hypertension: Y 8. Opioid Therapy greater than 6 weeks: Y Opiate Contract Signed: 05/30/18 9. Risk Assessment Tool Provided: LOW RISK 3 10. Functional Assessment Tool: 11. Recreational Drug Use: Never Drug Type: Tobacco Use: Former Smoker Tobacco Type: Amount or Packs/day: How Many Years: Alcohol Use: No Frequency: Quant:
== END ==
LOC: PAIN 07:13
PROVIDERS: ATTEND Clinical Nurse Specialist Adult Health
DX: M50.10 Cervical disc disorder with radiculopathy, unspecified cervical region (principal); M25.511 Pain in right shoulder; M25.512 Pain in left shoulder; G89.29 Other chronic pain; M79.7 Fibromyalgia; F41.8 Other specified anxiety disorders; Z88.8 Allergy status to other drugs, medicaments and biological substances; Z88.6 Allergy status to analgesic agent; Z88.1 Allergy status to other antibiotic agents; Z79.899 Other long term (current) drug therapy

== ENCOUNTER → 2021-02-17 | Outpatient (CLI) | payer BC ==
[~2021-02-17] VITALS: Ht 157.5 cm; Wt 75.3 kg
[2021-02-17 11:09] VITALS: BP 146/83
--- NOTE | 2021-02-17 11:14 | NUR ---
Pain Clinic Assessment: 1. History of Osteoarthritis: NECK LOWER BACK RIGHT ARM History of Rheumatoid Arthritis: Not Applicable 2. Height: 5 ft. 2 in. 157.5 cm. Weight: 166.0 lb. oz. 75.297 kg. Patient's BMI: 30.4 3. Vital Signs: BP: 146/83 Pulse: 52 Resp: 16 Temp: 02 Sat: 99 ECG Mon: 4. Pain Intensity: 8 5. Fall Risk: Dizziness: N Needs help standing or walking: N Fallen in the last 3 months: N Fall risk comments: 6. Patient on Blood Thinner: None 7. History of Hypertension: Y 8. Opioid Therapy greater than 6 weeks: Y Opiate Contract Signed: 05/30/18 9. Risk Assessment Tool Provided: MOD RISK 6 10. Functional Assessment Tool: 11. Recreational Drug Use: Never Drug Type: Tobacco Use: Former Smoker Tobacco Type: Amount or Packs/day: How Many Years: Alcohol Use: No Frequency: Quant:
== END ==
LOC: PAIN 07:48
PROVIDERS: ATTEND Clinical Nurse Specialist Adult Health
DX: M50.10 Cervical disc disorder with radiculopathy, unspecified cervical region (principal); M79.7 Fibromyalgia; G89.29 Other chronic pain; G43.809 Other migraine, not intractable, without status migrainosus; F41.8 Other specified anxiety disorders; Z87.891 Personal history of nicotine dependence; Z88.0 Allergy status to penicillin; Z88.8 Allergy status to other drugs, medicaments and biological substances; Z79.899 Other long term (current) drug therapy